=== PATIENT | female | born 1950 | race Caucasian/White ===

== ENCOUNTER → 2023-01-07 13:15 | Outpatient (BNVA) | payer MEDICARE, OTHER, SELFPAY | PROVIDERS: Visit Provider Podiatrist Foot & Ankle Surgery | DX: M72.2 Plantar fascial fibromatosis; M19.072 Primary osteoarthritis, left ankle and foot; M19.071 Primary osteoarthritis, right ankle and foot; G62.9 Polyneuropathy, unspecified; E11.42 Type 2 diabetes mellitus with diabetic polyneuropathy; Z79.84 Long term (current) use of oral hypoglycemic drugs | CPT/HCPCS: 73630; 99204 ==

== ENCOUNTER → 2023-06-14 08:38 | Outpatient (BNVA) | payer MEDICARE, OTHER, SELFPAY | PROVIDERS: Visit Provider Student in an Organized Health Care Education/Training Program | DX: M79.641 Pain in right hand (principal); M79.642 Pain in left hand; M65.321 Trigger finger, right index finger; M65.332 Trigger finger, left middle finger | CPT/HCPCS: 20600; 73130; 99204; J3301; J3490 ==

== ENCOUNTER → 2023-07-05 10:53 | Outpatient (BNVA) | payer MEDICARE, OTHER, SELFPAY | PROVIDERS: PCP Internal Medicine; Visit Provider Student in an Organized Health Care Education/Training Program | DX: M46.1 Sacroiliitis, not elsewhere classified; M70.61 Trochanteric bursitis, right hip | CPT/HCPCS: 73502; 99204 ==

== ENCOUNTER → 2023-07-16 15:55 | Outpatient (BNVA) | payer MEDICARE, OTHER, SELFPAY | PROVIDERS: PCP Internal Medicine; Visit Provider Student in an Organized Health Care Education/Training Program | DX: M75.42 Impingement syndrome of left shoulder | CPT/HCPCS: 73030; 99213 ==

== ENCOUNTER → 2023-07-18 08:59 | Outpatient (BNVA) | payer MEDICARE, OTHER, SELFPAY | PROVIDERS: PCP Internal Medicine; Visit Provider Anesthesiology Pain Medicine | DX: G62.9 Polyneuropathy, unspecified; M46.1 Sacroiliitis, not elsewhere classified; M70.61 Trochanteric bursitis, right hip; M16.11 Unilateral primary osteoarthritis, right hip; M54.50 Low back pain, unspecified; Y93.9 Activity, unspecified | CPT/HCPCS: 99204 ==

== ENCOUNTER → 2023-07-24 14:29 | Outpatient (BNVA) | payer MEDICARE, OTHER, SELFPAY | PROVIDERS: PCP Internal Medicine; Visit Provider Anesthesiology Pain Medicine | DX: M16.9 Osteoarthritis of hip, unspecified (principal); M46.1 Sacroiliitis, not elsewhere classified; M54.9 Dorsalgia, unspecified | CPT/HCPCS: 20610; 27096; 77002; J1030; J3490 ==

== ENCOUNTER → 2023-08-05 12:57 | Outpatient (BNVA) | payer MEDICARE, OTHER, SELFPAY | PROVIDERS: PCP Internal Medicine; Visit Provider Anesthesiology Pain Medicine | DX: M16.11 Unilateral primary osteoarthritis, right hip (principal) | CPT/HCPCS: 20610; 77002; J1030; J3490 ==

== ENCOUNTER → 2023-09-02 08:36 | Outpatient (BNVA) | payer MEDICARE, OTHER, SELFPAY | PROVIDERS: PCP Internal Medicine; Visit Provider Anesthesiology Pain Medicine | DX: M54.16 Radiculopathy, lumbar region (principal); G62.9 Polyneuropathy, unspecified; M19.079 Primary osteoarthritis, unspecified ankle and foot; M46.1 Sacroiliitis, not elsewhere classified; M70.61 Trochanteric bursitis, right hip; M16.11 Unilateral primary osteoarthritis, right hip; Y93.9 Activity, unspecified | CPT/HCPCS: 99214 ==

== ENCOUNTER 2023-09-12 08:50 | Outpatient (CLI) | payer MEDICARE, OTHER, SELFPAY ==
--- NOTE | 2023-09-12 09:00 | CT_ITS ---
WS: [id number] CT LUMBAR SPINE TECHNIQUE: Noncontrast CT of the lumbar spine with coronal and sagittal reformatted images. CLINICAL INFORMATION: M54.16 - Radiculopathy, lumbar region COMPARISON: CT lumbar 2010 DLP: 907.[address] scans at [facility] use at least one of these dose optimization techniques: automated e xposure control; mA and/or kV adjustment per patient size (includes targeted exams where dose is matc hed to clinical indication); or iterative reconstruction. FINDINGS: Mild lumbar curve. Grade 1 anterolisthesis L4 on L5 measuring 5 mm is new from previous with disc salo iccation and loss of disc base height. Vacuum disc phenomenon L4-5. Disc space narrowing lower thorac ic spine T11-T12 and T12-L1. L5 is partially sacralized. L1-L2: Normal. L2-L3: Mild facet arthropathy. Spinal canal and foramen are patent. L3-L4: Mild annular bulging. Moderate facet arthropathy. Mild LEFT greater than RIGHT foraminal narro wing. Slight encroachment on the exiting LEFT L3 nerve root with LEFT eccentric disc bulging. L4-L5: Grade 1 anterolisthesis measuring 5 mm. Moderate central canal stenosis. Moderate facet arthro lata. Moderate to severe bilateral foraminal narrowing RIGHT greater than LEFT with impingement on t he exiting L4 nerve roots bilaterally. L5-S1: No significant disc bulging. Moderate facet arthropathy. Mild LEFT and no significant RIGHT fo raminal narrowing. Spinal canal is patent. Visualized pelvic bony structures: Normal. Paravertebral soft tissues: Normal. IMPRESSION: 1. Grade 1 anterolisthesis L4 on L5 is new compared to 2010 measuring 5 mm. Loss of disc base height with disc desiccation and vacuum disc phenomenon. 2. Moderate central canal stenosis L4-5 with moderate facet arthropathy. Moderate to severe bilatera l bony foraminal narrowing impinges the exiting L4 nerve roots bilaterally RIGHT greater than LEFT. 3. LEFT eccentric disc bulging L3-4 slightly encroaches on the exiting LEFT L3 nerve root. 4. Mild LEFT L5-S1 bony foraminal narrowing. 5. Moderate facet arthropathy L3-L5. 6. L5 is partially sacralized.
== END 2023-09-12 08:51 | disposition home or self-care (01) ==
LOC: RAD 08:50
PROVIDERS: PCP Internal Medicine; Visit Provider Anesthesiology Pain Medicine
DX: M47.26 Other spondylosis with radiculopathy, lumbar region (principal); M51.36 Other intervertebral disc degeneration, lumbar region
CPT/HCPCS: 72131

== ENCOUNTER → 2023-09-20 09:32 | Outpatient (BNVA) | payer MEDICARE, OTHER, SELFPAY | PROVIDERS: PCP Internal Medicine; Visit Provider Student in an Organized Health Care Education/Training Program | DX: M65.321 Trigger finger, right index finger; M65.332 Trigger finger, left middle finger | CPT/HCPCS: 99213 ==

== ENCOUNTER → 2023-10-03 09:32 | Outpatient (BNVA) | payer MEDICARE, OTHER, SELFPAY | PROVIDERS: PCP Internal Medicine; Visit Provider Anesthesiology Pain Medicine | DX: G62.9 Polyneuropathy, unspecified; M19.079 Primary osteoarthritis, unspecified ankle and foot; M46.1 Sacroiliitis, not elsewhere classified; M70.61 Trochanteric bursitis, right hip; M16.11 Unilateral primary osteoarthritis, right hip; M43.16 Spondylolisthesis, lumbar region; M48.061 Spinal stenosis, lumbar region without neurogenic claudication; M47.816 Spondylosis without myelopathy or radiculopathy, lumbar region; Y93.9 Activity, unspecified | CPT/HCPCS: 99214 ==

== ENCOUNTER → 2023-10-22 08:29 | Outpatient (BNVA) | payer MEDICARE, OTHER, SELFPAY | PROVIDERS: PCP Internal Medicine; Visit Provider Student in an Organized Health Care Education/Training Program | DX: M54.50 Low back pain, unspecified (principal); M25.551 Pain in right hip | CPT/HCPCS: 99213 ==

== ENCOUNTER → 2023-11-05 08:38 | Outpatient (BNVA) | payer MEDICARE, OTHER, SELFPAY | PROVIDERS: PCP Internal Medicine; Visit Provider Orthopaedic Surgery | DX: M54.9 Dorsalgia, unspecified (principal); M43.16 Spondylolisthesis, lumbar region | CPT/HCPCS: 72100; 72110; 99204 ==

== ENCOUNTER → 2024-02-04 08:15 | Outpatient (BNVA) | payer MEDICARE, OTHER, SELFPAY | PROVIDERS: PCP Internal Medicine; Visit Provider Orthopaedic Surgery | DX: M43.16 Spondylolisthesis, lumbar region (principal); M54.50 Low back pain, unspecified | CPT/HCPCS: 72110; 99213 ==

== ENCOUNTER → 2024-02-20 12:53 | Outpatient (BNVA) | payer MEDICARE, OTHER, SELFPAY | PROVIDERS: PCP Internal Medicine; Visit Provider Podiatrist Foot & Ankle Surgery | DX: M79.671 Pain in right foot (principal); M79.672 Pain in left foot; M72.2 Plantar fascial fibromatosis; M19.071 Primary osteoarthritis, right ankle and foot; M19.072 Primary osteoarthritis, left ankle and foot; G62.9 Polyneuropathy, unspecified; E11.42 Type 2 diabetes mellitus with diabetic polyneuropathy; Z79.84 Long term (current) use of oral hypoglycemic drugs | CPT/HCPCS: 73630; 99213 ==

== ENCOUNTER → 2024-04-23 13:11 | Outpatient (BNVA) | payer MEDICARE, OTHER, SELFPAY | PROVIDERS: PCP Internal Medicine; Visit Provider Podiatrist Foot & Ankle Surgery | DX: L60.3 Nail dystrophy (principal); G62.9 Polyneuropathy, unspecified; E11.42 Type 2 diabetes mellitus with diabetic polyneuropathy; M19.071 Primary osteoarthritis, right ankle and foot; M19.072 Primary osteoarthritis, left ankle and foot; Z79.84 Long term (current) use of oral hypoglycemic drugs | CPT/HCPCS: 11721 ==

== ENCOUNTER → 2024-05-12 08:12 | Outpatient (BNVA) | payer MEDICARE, OTHER, SELFPAY | PROVIDERS: PCP Internal Medicine; Visit Provider Orthopaedic Surgery | DX: M43.16 Spondylolisthesis, lumbar region | CPT/HCPCS: 99213 ==

== ENCOUNTER → 2024-06-25 14:20 | Outpatient (BNVA) | payer MEDICARE, OTHER, SELFPAY | PROVIDERS: PCP Internal Medicine; Visit Provider Podiatrist Foot & Ankle Surgery | DX: L60.3 Nail dystrophy (principal); G62.9 Polyneuropathy, unspecified; E11.42 Type 2 diabetes mellitus with diabetic polyneuropathy; Z79.84 Long term (current) use of oral hypoglycemic drugs | CPT/HCPCS: 11721 ==

== ENCOUNTER → 2024-08-26 11:20 | Outpatient (BNVA) | payer MEDICARE, OTHER, SELFPAY | PROVIDERS: PCP Internal Medicine; Visit Provider Podiatrist Foot & Ankle Surgery | DX: E11.42 Type 2 diabetes mellitus with diabetic polyneuropathy (principal); L60.3 Nail dystrophy; G62.9 Polyneuropathy, unspecified; Z79.84 Long term (current) use of oral hypoglycemic drugs | CPT/HCPCS: 11721 ==

== ENCOUNTER → 2024-10-22 13:58 | Outpatient (BNVA) | payer MEDICARE, OTHER, SELFPAY | PROVIDERS: PCP Internal Medicine; Visit Provider Surgery | DX: K43.9 Ventral hernia without obstruction or gangrene (principal) | CPT/HCPCS: 99203 ==

== ENCOUNTER → 2024-10-28 11:14 | Outpatient (BNVA) | payer MEDICARE, OTHER, SELFPAY | PROVIDERS: PCP Internal Medicine; Visit Provider Podiatrist Foot & Ankle Surgery | DX: E11.42 Type 2 diabetes mellitus with diabetic polyneuropathy (principal); L60.3 Nail dystrophy; M19.079 Primary osteoarthritis, unspecified ankle and foot; G62.9 Polyneuropathy, unspecified | CPT/HCPCS: 11721 ==

== ENCOUNTER 2024-11-04 15:42 | Outpatient (CLI) | payer MEDICARE, OTHER, SELFPAY ==
[2024-11-04] MEDS: iohexol 350 mg/mL 500 mL Btl (per mL) PO (16:11)
[2024-11-04] MEDS: iohexol 350 mg/mL 500 mL Btl (per mL) IV (16:51)
--- NOTE | 2024-11-04 17:15 | CTR_ITS ---
PROCEDURE INFORMATION: Exam: CT Abdomen And Pelvis With Contrast Exam date and time: 11/04/2024 4:40 PM Age: 74 years old Clinical indication: Condition or disease; Hernia; Complications not specified; Ventral; Prior surgery; Surgery date: 6+ months; Surgery type: --back, stimulator, appy, hyst; Additional info: Ventral hernia TECHNIQUE: Imaging protocol: Computed tomography of the abdomen and pelvis with contrast. Radiation optimization: All CT scans at this facility use at least one of these dose optimization techniques: automated exposure control; mA and/or kV adjustment per patient size (includes targeted exams where dose is matched to clinical indication); or iterative reconstruction. Contrast material: OMNI 350; Contrast volume: 100 ml; Contrast route: INTRAVENOUS (IV); COMPARISON: CR XR hip RT 2-3V wo/w pel* [id number] 07/05/2023 11:07 AM RADIATION DOSE METRICS: Total DLP (mGy-cm): 864.26 FINDINGS: Tubes, catheters and devices: Lower thoracic intraspinal neural stimulator leads. Heart: Moderate aortic valvular calcification is present. Liver: Normal. No mass. Gallbladder and biliary ducts: Normal. No calcified stones. No ductal dilation. Pancreas: Moderate pancreatic atrophy. Spleen: Normal. No splenomegaly. Adrenal glands: Normal. No mass. Kidneys and ureters: Normal. No hydronephrosis. Stomach and bowel: Sigmoid colonic diverticula are present without evidence of diverticulitis. Appendix: The vermiform appendix is not identified on this examination (prior appendectomy). Intraperitoneal space: No free air. No significant fluid collection. Vasculature: Moderate abdominal aortic atherosclerotic calcification without aneurysm. The iliac arteries show mild bilateral atherosclerotic calcifications without evidence of aneurysm. Calcified phleboliths are present in the lower pelvis bilaterally. Lymph nodes: No enlarged lymph nodes. Urinary bladder: Unremarkable as visualized. Reproductive: The uterus is status post hysterectomy. The ovaries are not identified. Bones/joints: Bilateral lower lumbar facet primary osteoarthritis. Grade 1 L4-5 degenerative type anterolisthesis. L4-L5 degenerative disc disease. Soft tissues: A tiny paraumbilical hernia containing only abdominal fat is noted. 5.5 x 4.6 x 6.3 cm supraumbilical linea alba hernia containing only abdominal adipose. CT/CT abdomen pelvis w con* [id number] IMPRESSION: 1. Supraumbilical linea alba hernia. 2. Prior hysterectomy. 3. Diverticulosis. 4. Previous appendectomy.
== END 2024-11-04 15:43 | disposition home or self-care (01) ==
PROVIDERS: PCP Electrodiagnostic Medicine; Visit Provider Surgery
DX: K43.9 Ventral hernia without obstruction or gangrene (principal); M17.12 Unilateral primary osteoarthritis, left knee; M25.561 Pain in right knee; M25.562 Pain in left knee
CPT/HCPCS: 73560; 73565; 74177; 99214

== ENCOUNTER → 2024-11-24 10:12 | Outpatient (BNVA) | payer MEDICARE, OTHER, SELFPAY | PROVIDERS: PCP Electrodiagnostic Medicine; Visit Provider Surgery | DX: Z09 Encounter for follow-up examination after completed treatment for conditions other than malignant neoplasm (principal); R03.0 Elevated blood-pressure reading, without diagnosis of hypertension | CPT/HCPCS: 99213 ==

== ENCOUNTER 2024-12-08 14:49 | Emergency (ER) | payer MEDICARE, OTHER, SELFPAY ==
[2024-12-08 14:50] VITALS: BP 199/89; PULSE 98; RESP 20; TEMP 36.7; O2SAT 98
--- NOTE | 2024-12-08 14:50 | XRR_ITS ---
PROCEDURE INFORMATION: Exam: XR Left Knee Exam date and time: 12/08/2024 3:07 PM Age: 74 years old Clinical indication: Injury or trauma; Fall; Blunt trauma; Knee; Left TECHNIQUE: Imaging protocol: Radiologic exam of the left knee. Views: 3 views. COMPARISON: CR XR knees AP WB w BI lmt ORTH 11/04/2024 2:49 PM FINDINGS: Bones/joints: No acute fracture or dislocation. Redemonstrated moderate to severe narrowing of the medial compartment and moderate narrowing of the patellofemoral compartment. Tricompartmental marginal osteophytes. No significant joint effusion. Soft tissues: Normal. XR/XR knee LT 3V* [id number] IMPRESSION: 1. No acute osseous findings. 2. Tricompartmental degenerative changes most pronounced in the medial compartment.
--- NOTE | 2024-12-08 14:52 | W.ED.FALL ---
HPI - Fall General: Chief Complaint: Extremity Injury, Lower Stated Complaint: Fall, LT knee pain Time Seen by Provider: 12/08/24 14:50 History of Present Illness: 74-year-old female presents emergency after a fall while at home. She was walking down some steps carrying a large toe but she missed stepped and fell down several steps she hurt her left wrist left knee and left ankle did not strike her head no loss consciousness no injury to her chest or abdomen no difficulty breathing no chest pain no abdominal pain Associated symptoms-after fall: Denies abdominal pain, chest pain or neck pain Related Data Home Medications ?Medication ?Instructions ?Recorded ?Confirmed albuterol sulfate inhalation PRN shortness of breath 01/07/23 11/24/24 meloxicam 15 mg tablet 15 mg PO DAILY 01/07/23 11/24/24 metformin 500 mg tablet 500 mg PO DAILY 01/07/23 11/24/24 metoprolol succinate 100 mg 100 mg PO DAILY 01/07/23 11/24/24 tablet,extended release 24 hr mometasone 0.1 % topical cream 1 applic topical DAILY 01/07/23 11/24/24 nitroglycerin 6.5 mg 6.5 mg PO BID 01/07/23 11/24/24 capsule,extended release rosuvastatin 40 mg tablet (Crestor) 40 mg PO DAILY 01/07/23 11/24/24 tramadol 50 mg tablet 50 mg PO BID PRN 01/07/23 11/24/24 mounja drops as directed 11/24/24 Previous Rx's ?Medication ?Instructions ?Recorded diabetic shoes with 3 inserts #1 ea 08/03/24 Allergies Allergy/AdvReac Type Severity Reaction Status Date / Time latex Allergy Severe ADR-Itching Verified 11/24/24 10:12 Penicillins Allergy Severe ALGY-Rash Verified 11/24/24 10:12 gabapentin (From Neurontin) Allergy Intermediate ADR-Itching Verified 11/24/24 10:12 levofloxacin (From Levaquin) Allergy Intermediate ADR-Itching Verified 11/24/24 10:12 Sulfa (Sulfonamide Allergy Intermediate Unknown Verified 11/24/24 10:12 Antibiotics) tuna Allergy Severe ADR-Vomitin Uncoded 11/24/24 10:12 g horse serum TD Allergy Intermediate ALGY-Redness Uncoded 11/24/24 10:12 of Skin inderal Allergy Intermediate ADR-Nausea Uncoded 11/24/24 10:12 Review of Systems Const: Denies: fever(s) or chills Card: Denies: chest pain Resp: Denies: dyspnea GI: Denies: abdominal pain : Denies: dysuria, urinary frequency or urinary urgency Musc: Denies: neck pain or back pain Skin/Breast: Denies: rash PFSH ED PFSH: Social History Smoking and tobacco/nicotine status: never used tobacco/nicotine Physical Exam Const: COMMON NORMALS: no acute distress GENERAL APPEARANCE: cooperative and comfortable ORIENTATION/CONSCIOUSNESS: Yes awake, Yes oriented to person, Yes oriented to place and Yes oriented to time HENMT: COMMON NORMALS: normocephalic, atraumatic and hearing grossly normal bilaterally HEAD & SCALP: normocephalic and atraumatic Resp: COMMON NORMALS: normal respiratory effort, No retractions, No use of accessory muscles and clear to auscultation bilaterally AUSCULTATION: clear to auscultation bilaterally Cardio: COMMON NORMALS: regular rate, regular rhythm and No murmurs present (Cardio) RATE: regular rate RHYTHM: regular rhythm GI: COMMON NORMALS: Soft to palpation and No hepatosplenomegaly present AUSCULTATION: Yes normoactive bowel sounds PALPATION: Yes Soft to palpation, No Tenderness to palpation present (GI), No Guarding due to palpation present (GI) and Yes No hepatosplenomegaly present Extremity: COMMON NORMALS: normal to inspection, capillary refill normal, no clubbing, cyanosis or edema, no calf tenderness and no pedal edema Neuro: SENSORIUM/ORIENTATION: Yes oriented to person, Yes oriented to place and Yes oriented to time Skin: COMMON NORMALS: no rashes or lesions noted GENERAL SKIN EXAM: no rashes or lesions noted Course Vital Signs: Vital signs: Vital Signs Temperature 98.1 F 12/08/24 14:50 Pulse Rate 98 12/08/24 14:50 Respiratory Rate 20 H 12/08/24 14:50 Blood Pressure 199/89 12/08/24 14:50 Pulse Oximetry 98 12/08/24 14:50 Oxygen Delivery Me thod Room Air 12/08/24 14:50 MDM - Fall Medical Decision Making Imaging does not show any acute fractures however patient still has some discomfort walking the knee she certainly has a great degree of arthritic changes there she is actually scheduled in about 6 weeks have a knee arthroplasty done. She still feels unsteady on the leg we will put her in a knee immobilizer she has a walker that she will use that she already got at home. Have her follow-up with orthopedics. Lab Data Radiology Impressions Knee X-Ray 12/08/24 14:50 IMPRESSION: 1. No acute osseous findings. 2. Tricompartmental degenerative changes most pronounced in the medial compartment. Ankle X-Ray 12/08/24 14:57 IMPRESSION: No acute osseous findings. Lumbar Spine X-Ray 12/08/24 15:06 IMPRESSION: No acute osseous findings. Wrist X-Ray 12/08/24 15:06 IMPRESSION: 1. No definite acute osseous findings. 2. Similar severe degenerative changes most pronounced along the 1st CMC joint. Knee CT 12/08/24 15:50 IMPRESSION: 1. No acute osseous findings. MRI could be considered for further assessment if there is concern for internal derangement. 2. Mild prepatellar soft tissue swelling. 3. Tricompartmental degenerative changes most pronounced in the medial compartment. All radiology interpretation(s) finalized by discharge Discharge Plan Discharge Patient Disposition: Home Clinical Impression: Sprain of left knee, Fall Condition: Stable Prescriptions: No Action metoprolol succinate 100 mg tablet extended release 24 hr 100 mg PO DAILY nitroglycerin 6.5 mg capsule, extended release 6.5 mg PO BID Rx Instructions: allow nitrate-free interval of approx. 10-12 hrs per 24-hour period rosuvastatin [Crestor] 40 mg tablet 40 mg PO DAILY meloxicam 15 mg tablet 15 mg PO DAILY mometasone 0.1 % cream 1 applic topical DAILY tramadol 50 mg tablet 50 mg PO BID PRN metformin 500 mg tablet 500 mg PO DAILY albuterol sulfate inhalation PRN (Reason: shortness of breath) mounja drops as directed (DME) diabetic shoes with 3 inserts See Rx Instructions .Route .MEDSUPPLY Qty: 1 0RF Rx Instructions: As directed to the shoe delaneyjocelyn Discharge Orders: Discharge ED (Routine); Ordered 12/08/24 Ordered By: Derrek Lynn Referrals: Michele Milner, [Primary Care Provider, Family Practice] Discharge Diet: Usual diet Discharge Activity: Resume usual activity Patient Instructions: Opioid Safety, Pain Management, Patient Portal & Olga Instructions Activity Restrictions/Additional Instructions: Thank you for choosing [facility] for your healthcare needs today. It is very important that you follow up as instructed or that you return to the Emergency Department should you have concerns or if your condition changes or worsens in any way. You were seen in the emergency room after a fall. Imaging does not show any acute fractures. Since you continue to complain of pain in the left knee recommend you wear knee immobilizer and use your walker that you have at home until you follow-up with orthopedics. Print Language: Chinese Coding Level of Care Code ED Associate Research Scientist for Noemi Zavaleta
--- NOTE | 2024-12-08 14:57 | XRR_ITS ---
PROCEDURE INFORMATION: Exam: XR Left Ankle Exam date and time: 12/08/2024 3:04 PM Age: 74 years old Clinical indication: Injury or trauma; Fall; Sprain or strain; Ankle; Left; Additional info: Pain TECHNIQUE: Imaging protocol: Radiologic exam of the left ankle. Views: 3 or more views. COMPARISON: [place] [id number] ORTH 02/20/2024 1:01 PM FINDINGS: Bones/joints: No acute fracture or dislocation. Symmetric ankle mortise. Joint spaces are preserved. Plantar calcaneal enthesophyte. Soft tissues: Normal. XR/XR ankle LT min 3V* [id number] IMPRESSION: No acute osseous findings.
--- OUTSIDE RECORDS SUMMARY | 2024-12-08 14:59 | XMS_ITS | Clinical Summary ---
Author Organization [facility] Address [address] oBwen: [place] [address] Care Team Providers Care Argon Tester Name Role Phone Unavailable Primary Care Provider Unavailabl e Allergies Active Allergy Reactions Criticality Noted Date Comments Gabapentin Rash,Swelling Low 12/07/2008 Horse/Equine Containing Products Rash,Swelling Low 12/07/2008 Levofloxacin Rash,Swelling Low 12/07/2008 Penicillin G Rash,Swelling Low 12/07/2008 Propranolol Rash,Swelling Low 12/07/2008 Active Problems Problem Noted Date Diagnosed Date HTN (hypertension) 02/07/2009 Overview (10/06/2020): Updating IMO/ICD9 Code and Description Dyslipidemia 12/14/2008 Other and unspecified angina pectoris 12/07/2008 Nonspecific abnormal electrocardiogram (ECG) (EK G) 12/07/2008 Encounters Date Type Department Care Team Description 11/25/2024 External Device Data ST[facility] ABSTRACTION Provider, Abstract 10/29/2024 External Device Data [facility] ABSTRACTION Provider, Abstract 10/29/2024 External Device Data [facility] ABSTRACTION Provider, Abstract 10/28/2024 External Device Data [facility] ABSTRACTION Provider, Abstract 09/08/2024 External Device Data [facility] ABSTRACTION Provider, Abstract from Last 3 Months Family History Medical History Relation Name Comments Heart Disease Father Heart Disease Mother Breast Cancer Sister 1 ages 27 & 58 Lung Cancer Sister 1 Uterine or Endometrial Cancer, Not Including Cervical Sister 2 Cancer - Other Neg Hx Melanoma Neg Hx Ovarian Cancer Neg Hx Pancreatic Cancer Neg Hx Relation Name Status Comments Daughter 1 Alive Daughter 2 Alive Father Maternal Grandmother Mother Sister 1 (Age 58) Sister 2 Sister 3 Alive Sister 4 MAT HALF Alive Social History Tobacco Use Types Packs/Day Years Used Date Smoking Tobacco: Former Cigarettes Q uit: 06/10/1971 Alcohol Use Standard Drinks/Week Comments No 0 (1 standard drink = 0.6 oz pur e alcohol) Comments No Sex and Gender Information Value Date Recorded Sex Assigned at Not on file 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 Gender Identity Not on file Sexual Orientation Not on file Last Filed Vital Signs Vital Sign Reading Time Taken Comments Blood Pressure - - Pulse - - Temperature - - Respiratory Rate - - Oxygen Saturation - - Inhaled Oxygen Concentration - - Weight 73.5 kg (162 lb) 06/08/2024 1:00 PM 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 Height 147.3 cm (4' 10 ) 06/08/2024 1: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 [place] [place], [place] [id number]
--- OUTSIDE RECORDS SUMMARY | 2024-12-08 14:59 | XMS_ITS | Patient Health Record ---
Author Organization [facility] Address [address] [place] [address] Care Team Providers Care Faucets Assembler Name Role Phone Aleksandr Littlejohn DO Primary Care Provider Unavaila Nicolás Hemphill Unavailable [phone] KALEIGH HESS Unavailable Unavailable Allergies Allergen (clinical drug ingredient) Drug/Non Drug Allergy documented on EMR Reaction Allergy Type Onset Date Status Information temporarily unavailable Neurontin Unknown Drug Allergy Active Information temporarily unavailable Tuna Flavor Unknown Drug Allergy Active Information temporarily unavailable Adhesive Unknown Allergy Active Information temporarily unavailable Horse-derived Products Unknown Drug Allergy Activ e Information temporarily unavailable Inderal Unknown Drug Allergy Active Information temporarily unavailable Latex Unknown Allergy Active Information temporarily unavailable Levaquin Unknown Drug Allergy Active Information temporarily unavailable Penicillin Unknown Drug Allergy Active Reason For Referral No Information Medications Medication SIG (Take, Route, Frequency, Duration) Notes Start Date End Date Status Nitro-Bid Active Metoprolol Tartrate 100 MG 1 tablet with food Orally Twice a day Active Omeprazole 40 MG 1 capsule 30 minutes before morning meal Orally Once a day Active Crestor 40 MG 1 tablet Orally Once a day Active Elocon Active Meloxicam 15 MG 1 tablet Orally Once a day Active metFORMIN HCl 500 MG 1 tablet with a allison l Orally Once a day Active traMADol HCl 50 MG 1 tablet as needed O rally Once a day Active Social History Tobacco Use: Social History Observation Description Date Details (start date - stop date) Former Smoker NA - NA xTobacco Use/Smoking Question Answer Notes Are you a former smoker How long has it been since you last smoked? > 10 years Alcohol Screen (Audit-C) Question Answer Notes Did you have a drink containing alcohol in the p ast year? No Points 0 Interpretation Negative PHQ-9 Question Answer Notes Little interest or pleasure in doing things Not at all Feeling down, depressed, or hopeless Not at all Trouble falling or staying asleep, or sleeping t oo much More than half the days Feeling tired or having little energy Not at all Poor appetite or overeating Not at all Feeling bad about yourself, or that you are a failure, or have let yourself or your family down Not at all Trouble concentrating on thi ngs, such as reading the newspaper or watching television Not at all Moving or speaking so slowly that other people could have noticed. Or the opposite ? 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 Plan Of Treatment Pending Test Test Name Order Date XR Outside CD 10/23/2019 Insurance Providers Payer Name Payer Address Payer Phone Subscriber Number Group Number Insured Name Patient Relationship to Insured Coverage Start Date Coverage End Date [place] Medicare [address] [place] [phone] [id number] [place], [place] Self - patient is the insured [employer] [address] [place] [address] [place]ULINO [id number] [phone] [id number] [place], [place] Self - patient is the insured Medical (General) History Medical History History ICD Code measles whooping cough pneumonia arthritis urinary tract infections migraine headaches diabetes asthma bronchitis Surgical History Surgery Date(Month/Year) left shoulder ligament repair 08/2018 neurostimulator replaced 05/2018 right shoulder rotator cuff repair 01/27 17 right knee medial repair 10/2014 bilateral cataract removal 05/2012 neurostimulator implant 01/2009 Trial DSC implant 11/2008 laminectomy 10/2005 urethra repair 1994 bladder tuck 1994 hysterectomy 1994 carpal tunnel release 2005 tubal ligation 1982 section 1982 tonsillectomy 1971 appendectomy 1970
--- OUTSIDE RECORDS SUMMARY | 2024-12-08 14:59 | XMS_ITS | Data Portability ---
Author Organization [facility] Martin Stone [facility] Maxine Paige [facility] Address [address] [facility] [address] [place] [address] Assessment Encounter Date Assessment Date Assessment LastModified by Organization Details LastModified Time 10/07/2024 10/07/2024 Document scribed by Cesar Cavazos [employer]. I was present during interview and exam. I have reviewed and agree with above documentation. Dr. Michele Milner. A Care Coordination Assessment form was filled out as part of this patient's office visit today. [email or web address] Not available 10/07/2024 09:19:24 11/18/2024 11/18/2024 Document scribed by Cesar Cavazos [employer]. I was present during interview and exam. I have reviewed and agree with above documentation. Dr. Michele Milner. [email or web address] Not available 11/18/2024 12:30:07 Plan of Treatment Reminders Order Date Submit Date Provider Last Modified By Organization Details Last Modified Time Details Appointments RECHECK 10 2024 10:40A Candy Milner, DO Not available Not available Not available RECHECK 10 2024 09:30A Candy Milner, DO Not available Not available Not available Lab hemoglobi n A1C/hemog lobin total, QN, blood 2024 025 [email or web address] 7 [facility], [address], [facility] [address], [place], [address], 10/07/2024 13:10:16 CMP, serum or plasma 2024 025 [email or web address] 7 [facility], [address], [address], [place], [address], 10/07/2024 13:10:16 CBC 2024 025 [email or web address] 7 [facility], [address], [address], [place], [address], 10/07/2024 13:10:16 hemoglobi n A1C/hemog lobin total, QN, blood [email or web address] [facility], [address], [address], [place], [address], 10/14/2024 09:14:38 BMP, serum or plasma 2023 [address] [facility], [address], [address], [place], [address], 10/14/2024 09:14:38 lipid panel, blood 2024 025 [email or web address] 7 [facility], [address], [address], [place], [address], 10/07/2024 13:10:16 CMP, serum or plasma 2023 024 [facility], [address], [address], [place], [address], 03/30/2024 10:40:04 lipid panel, blood 2023 024 [facility], [address], [address], [place], [address], 03/30/2024 10:41:17 CBC 2023 024 [facility], [address], [address], [place], [address], 03/30/2024 10:08:48 TSH, serum or plasma 2023 024 [facility] ([facility]), [address] [place], [address], 03/30/2024 10:46:18 HbA1c (hemoglob in A1c), blood 2023 024 [facility] ([facility]), [address] [place], [address], 03/30/2024 10:12:06 microalbu min/creat inine, mass ratio, urine 2023 024 [facility], [address] [place] [address], [facility] [address] [place], [address], 04/02/2024 04:45:36 Referral general surgeon referral - RADHA Li. 2024 025 [facility], [address] [place] [address], [address], 10/14/2024 15:39:59 Procedures None recorded. Surgeries None recorded. Imaging XR, knee, 3 view 2024 025 [facility] ([facility]), [address] [place], [address], 10/08/2024 10:46:57 Medication Orders Mounjaro 2.5 mg/0.5 mL subcutane ous pen injector 2024 025 [email or web address] 7 [facility], [facility] [address], [place], [address], 11/18/2024 18:03:46 meloxicam 15 mg tablet 2024 025 [email or web address] 7 [facility], [address] [facility] [address], [place], [address], 10/07/2024 13:10:16 doxycycli ne hyclate 100 mg capsule 2023 [facility], [address] [place] [address], [address], [place], [address], 04/09/2024 10:37:24 Ventolin HFA 90 mcg/actua tion aerosol inhaler 2023 024 [facility], [address] [place] [address], [address], [place], [address], 03/24/2024 11:39:19 Patient TargetsNo targets recorded. Patient Instructions Encounter Date Encounter Id Patient Instructions Last Modified By Organization Details Last Modified Time 04/06/2024 [id number] lots of stress o n her plate; 's dementia worse a1c and lipids slightly up; they have been going to [facility] every day and she wasn't eating well; she will improve diet labs reviewed together mammogram scheduled in May [email or web address] Not available 04/06/2024 10:00:09 Reason for Referral General Surgeon Referral for [facility]mbilical hernia [facility] Referring Physician: Michele Milner, Family Medicine, Encounter Date: 10/07/2024 Results Created Date Observation Date Name Description Value Unit Range Abnormal Flag Note LastModifiedBy Organization Detail LastModifiedTime 03/30/2003/30/2024 CBC WBC 8.3 x10 4.0-10 .5 Not Available [facility] [address] [facility] [address], [place], [address], 03/30/2024 10:08:48 03/30/2003/30/2024 CBC RBC 4.85 x10 3.50-5 .50 Not Available [facility] [address], [place], [address], 03/30/2024 10:08:48 03/30/2003/30/2024 CBC HGB 13.5 g/dL 12.0-1 6.0 Not Available [facility] [address] [facility] 1, [place], [address], 03/30/2024 10:08:48 03/30/2003/30/2024 CBC HCT 40.6 % 37.0-4 7.0 Not Available [facility] [address] [facility] 1, [place], [address], 03/30/2024 10:08:48 03/30/2003/30/2024 CBC MCV 83.7 fL 80.0-9 9.9 Not Available [facility] [address] [facility] 1, [place], [address], 03/30/2024 10:08:48 03/30/2003/30/2024 CBC MCH 27.7 pg 27.0-3 2.0 Not Available [facility] [address] [facility] 1, [place], [address], 03/30/2024 10:08:48 03/30/2003/30/2024 CBC MCHC 33.1 g/dL 32.0-3 6.0 Not Available [facility] [address] [facility] 1, [place], [address], 03/30/2024 10:08:48 03/30/2003/30/2024 CBC RDW 14.9 % 11.5-1 4.5 high Not Available [facility] [address] [facility] 1, [place], [address], 03/30/2024 10:08:48 03/30/2003/30/2024 CBC plt 253.9 x10 140.0- 451.0 Not Available [facility] [address] [facility] 1, [place], [address], 03/30/2024 10:08:48 03/30/20 24 03/30/2024 CBC lymphocytes % 23.7 % 20.0-5 0.0 Not Available [facility] [address] [facility] 1, [place], [address], 03/30/2024 10:08:48 03/30/20 24 03/30/2024 CBC granulcytes % 62.5 % 30.0-7 0.0 Not Available [facility] [address] [facility] 1, [place], [address], 03/30/2024 10:08:48 03/30/2003/30/2024 CBC monocytes % 8.2 % 2.0-16 .0 Not Available [facility] [address] [facility] 1, [place], [address], 03/30/2024 10:08:48 03/30/2003/30/2024 CBC granulcytes# 5.2 x10 Not Alissa ilable [facility] [address] [facility] 1, [place], [address], 03/30/2024 10:08:48 03/30/20 24 03/30/2024 CBC lymphocytes # 2.0 x10 Not Available [facility] [address] [facility] 1, [place], [address], 03/30/2024 10:08:48 03/30/20 24 03/30/2024 CBC monocytes # 0.7 x10 Not Avai lable [facility] [address] [facility] 1, [place], [address], 03/30/2024 10:08:48 03/30/20 24 03/30/2024 CMP (FEMA LE) glucose 183.0 mg/dL 60.0-9 9.0 high Not Available [facility] [address] [facility] 1, [place], [address], 03/30/2024 10:40:04 03/30/20 24 03/30/2024 CMP (FEMA LE) BUN (blood urea nitrogen) 19.0 mg/dL 10.0-2 6.0 Not Available [facility] [address] [facility] 1, [place], [address], 03/30/2024 10:40:04 03/30/2003/30/2024 CMP (FEMA LE) creatinine (serum) 0.6 mg/dL 0.4-1. 5 Not Available [facility] [address] [facility] 1, [place], [address], 03/30/2024 10:40:04 03/30/2003/30/2024 CMP (FEMA LE) BUN/creatini ne ratio 30.16 ratio Not Available [facility] [address] [address], [place], [address], 03/30/2024 10:40:04 03/30/20 24 03/30/2024 CMP (FEMA LE) eGFR calculated 97.9 Not Available [facility] [address] [facility] 1, [place], [address], 03/30/2024 10:40:04 03/30/20 24 03/30/2024 CMP (FEMA LE) total protein 7.1 g/dL 6.0-8. 5 Not Available [facility] [address] [address], [place], [address], 03/30/2024 10:40:04 03/30/20 24 03/30/2024 CMP (FEMA LE) total bilirubin 0.6 mg/dL 0.2-1. 3 Not Available [facility] [address] [address], [place], [address], 03/30/2024 10:40:04 03/30/20 24 03/30/2024 CMP (FEMA LE) albumin 4.2 g/dL 3.5-5. 5 Not Available [facility] [address] [facility], [place], [address], 03/30/2024 10:40:04 03/30/20 24 03/30/2024 CMP (FEMA LE) globulin 2.9 calc Not Available [facility] [address] [facility] 1, [place], [address], 03/30/2024 10:40:04 03/30/20 24 03/30/2024 CMP (FEMA LE) AST (SGOT) 30.0 U/L 0.0-46 .0 Not Available [facility] [address] [facility] 1, [place], [address], 03/30/2024 10:40:04 03/30/20 24 03/30/2024 CMP (FEMA LE) altv (SGPT) 28.0 U/L 13.0-6 9.0 normal Not Available [facility] [address] [facility] 1, [place], [address], 03/30/2024 10:40:04 03/30/20 24 03/30/2024 CMP (FEMA LE) A/G ratio 1.4 ratio Not Available [facility] [address] [facility] 1, [place], [address], 03/30/2024 10:40:04 03/30/20 24 03/30/2024 CMP (FEMA LE) ALP phos 118.0 U/L 30.0-1 40.0 normal Not Available [facility] [address] [facility] 1, [place], [address], 03/30/2024 10:40:04 03/30/20 24 03/30/2024 CMP (FEMA LE) calcium 9.6 mg/dL 8.4-10 .5 Not Available [facility] [address] [facility] 1, [place], [address], 03/30/2024 10:40:04 03/30/2003/30/2024 CMP (FEMA LE) sodium 138.0 mmol/ L 136.0- 145.0 Not Available [facility] [address] [facility] 1, [place], [address], 03/30/2024 10:40:04 03/30/2003/30/2024 CMP (FEMA LE) potassium 4.7 mmol/ L 3.5-5. 1 Not Available [facility] [address] [facility] 1, [place], [address], 03/30/2024 10:40:04 03/30/2003/30/2024 CMP (FEMA LE) chloride 100.0 mmol/ L 98.0-1 10.0 normal Not Available [facility] [address] [facility] 1, [place], [address], 03/30/2024 10:40:04 03/30/2003/30/2024 CMP (FEMA LE) C02 28.0 mmol/ L 22.0-3 1.0 Not Available [facility] [address] [facility] 1, [place], [address], 03/30/2024 10:40:04 03/30/2003/30/2024 CMP (FEMA LE) anion gap 10.0 calc Not Available [facility] [address] [facility] 1, [place], [address], 03/30/2024 10:40:04 03/30/2003/30/2024 CMP (FEMA LE) osmolality 291.5 calc Not Available [facility] [address] [facility] 1, [place], [address], 03/30/2024 10:40:04 03/30/2003/30/2024 LIPID PROFI LE (FEMA LE) cholesterol 227.0 mg/dL 0.0-20 0.0 high Not Available [facility] [address] [facility] 1, [place], [address], 03/30/2024 10:41:17 03/30/2003/30/2024 LIPID PROFI LE (FEMA LE) trig 188.0 mg/dL 0.0-15 0.0 high Not Available [facility] [address] [facility] 1, [place], [address], 03/30/2024 10:41:17 03/30/2003/30/2024 LIPID PROFI LE (FEMA LE) HDL - direct 41.0 mg/dL >40.0 Not Available [facility] [address] [facility] 1, [place], [address], 03/30/2024 10:41:17 03/30/2003/30/2024 LIPID PROFI LE (FEMA LE) VLDL - direct 37.6 mg/dL Not Available [facility] [address] [facility] 1, [place], [address], 03/30/2024 10:41:17 03/30/2003/30/2024 LIPID PROFI LE (FEMA LE) LDL - direct 148.4 mg/dL 0.0-13 0.0 high Not Available [facility] [address] [facility] 1, [place], [address], 03/30/2024 10:41:17 03/30/2004/02/2024 ALBUM IN, RANDO M URINE W/CRE ATINI NE creatinine, random urine 73 mg/dL 20-275 normal Not Available [facility] [address] [address], [place], [address], 04/02/2024 04:45:36 03/30/2002 0404/02/2024 ALBUM IN, RANDO M URINE W/CRE ATINI NE albumin, urine 0.7 mg/dL see note: normal Refer ence Range : Refer ence Range Not estab lishe d Not Available [facility] [address] [place], [address], 04/02/2024 04:45:36 03/30/20 24 04/02/2024 ALBUM IN, RANDO M URINE W/CRE ATINI NE albumin/crea tinine ratio, random urine 10 mg/g_ creat <30 normal The ADA defin es abnor malit ies in album in excre tion as follo ws: Album inuri a Categ ory Resul t (mg/g creat inine ) Mehnaz l to Mildl y incre ased <30 Moder ately incre ased 30-29 9 Sever jasmine incre ased > OR = 300 The ADA recom mends that at least two of three speci mens colle cted withi n a 3-6 month perio d be abnor mal befor e consi marsha g a patie nt to be withi n a diagn ostic categ ory. Not Available [facility] [address] [place], [address], 04/02/2024 04:45:36 03/30/20 24 03/30/2024 TSH, serum or plasm a TSH 2.69 uIU/m L 0.49-3 .82 Not Available [facility] ([facility]) [address] [place] [address], [address], 03/30/2024 09:51:02 03/30/2003/30/2024 HbA1c (hemo globi n A1c), blood HbA1c 7.9 Not Available [facility] ([facility]) [address] [place] [address], [address], 03/30/2024 09:48:28 10/08/19 25 10/07/2024 CBC WBC 8.7 x10 4.0-10 .5 Not Available [facility] [address] [facility] 1, [place], [address], 10/07/2024 10:05:56 10/08/19 25 10/07/2024 CBC RBC 4.92 x10 3.50-5 .50 Not Available [facility] [address] [facility] 1, [place], [address], 10/07/2024 10:05:56 10/08/19 25 10/07/2024 CBC HGB 13.7 g/dL 12.0-1 6.0 Not Available [facility] [address] [facility] 1, [place], [address], 10/07/2024 10:05:56 10/08/19 25 10/07/2024 CBC HCT 42.3 % 37.0-4 7.0 Not Available [facility] [address] [facility] 1, [place], [address], 10/07/2024 10:05:56 10/08/19 25 10/07/2024 CBC MCV 85.9 fL 80.0-9 9.9 Not Available [facility] [address] [facility] 1, [place], [address], 10/07/2024 10:05:56 10/08/19 25 10/07/2024 CBC MCH 27.9 pg 27.0-3 2.0 Not Available [facility] [address] [facility] 1, [place], [address], 10/07/2024 10:05:56 10/08/19 25 10/07/2024 CBC MCHC 32.5 g/dL 32.0-3 6.0 Not Available [facility] [address] [facility] 1, [place], [address], 10/07/2024 10:05:56 10/08/19 25 10/07/2024 CBC RDW 14.4 % 11.5-1 4.5 Not Available [facility] [address] [facility] 1, [place], [address], 10/07/2024 10:05:56 10/08/19 25 10/07/2024 CBC plt 274.2 x10 140.0- 451.0 Not Available [facility] [address] [facility] 1, [place], [address], 10/07/2024 10:05:56 10/08/19 25 10/07/2024 CBC lymphocytes % 19.1 % 20.0-5 0.0 low Not Available [facility] [address] [facility] 1, [place], [address], 10/07/2024 10:05:56 10/08/19 25 10/07/2024 CBC granulcytes % 66.5 % 30.0-7 0.0 Not Available [facility] [address] [facility] 1, [place], [address], 10/07/2024 10:05:56 10/08/1910/07/2024 CBC monocytes % 7.3 % 2.0-16 .0 Not Available [facility] [address] [facility] 1, [place], [address], 10/07/2024 10:05:56 10/08/19 25 10/07/2024 CBC granulcytes# 5.8 x10 Not Alissa ilable [facility] [address] [facility] 1, [place], [address], 10/07/2024 10:05:56 10/08/19 25 10/07/2024 CBC lymphocytes # 1.7 x10 Not Available [facility] [address] [address], [place], [address], 10/07/2024 10:05:56 10/08/19 25 10/07/2024 CBC monocytes # 0.6 x10 Not Avai lable [facility] [address] [facility] 1, [place], [address], 10/07/2024 10:05:56 10/08/19 25 10/07/2024 HBA1C hemaglobin A1C 8.1 4.2-6. 5 high Not Available [facility] [address] [facility] 1, [place], [address], 10/07/2024 10:15:54 10/08/19 25 10/07/2024 CMP (FEMA LE) glucose 196.0 mg/dL 60.0-9 9.0 high Not Available [facility] [address] [facility] 1, [place], [address], 10/07/2024 10:41:55 10/08/19 25 10/07/2024 CMP (FEMA LE) BUN (blood urea nitrogen) 24.0 mg/dL 10.0-2 6.0 Not Available [facility] [address] [facility] 1, [place], [address], 10/07/2024 10:41:55 10/08/19 25 10/07/2024 CMP (FEMA LE) creatinine (serum) 0.6 mg/dL 0.4-1. 5 Not Available [facility] [address] [address], [place], [address], 10/07/2024 10:41:55 10/08/19 25 10/07/2024 CMP (FEMA LE) BUN/creatini ne ratio 40.00 ratio Not Available [facility] [address] [facility] 1, [place], [address], 10/07/2024 10:41:55 10/08/19 25 10/07/2024 CMP (FEMA LE) eGFR calculated 103.6 Not Available [facility] [address] [facility] 1, [place], [address], 10/07/2024 10:41:55 10/08/19 25 10/07/2024 CMP (FEMA LE) total protein 7.3 g/dL 6.0-8. 5 Not Available [facility] [address] [facility] 1, [place], [address], 10/07/2024 10:41:55 10/08/19 25 10/07/2024 CMP (FEMA LE) total bilirubin 0.5 mg/dL 0.2-1. 3 Not Available [facility] [address] [facility] 1, [place], [address], 10/07/2024 10:41:55 10/08/19 25 10/07/2024 CMP (FEMA LE) albumin 4.1 g/dL 3.5-5. 5 Not Available [facility] [address] [facility] 1, [place], [address], 10/07/2024 10:41:55 10/08/19 25 10/07/2024 CMP (FEMA LE) globulin 3.2 calc Not Available [facility] [address] [address], [place], [address], 10/07/2024 10:41:55 10/08/19 25 10/07/2024 CMP (FEMA LE) AST (SGOT) 23.0 U/L 0.0-46 .0 Not Available [facility] [address] [facility] 1, [place], [address], 10/07/2024 10:41:55 10/08/19 25 10/07/2024 CMP (FEMA LE) altv (SGPT) 22.0 U/L 13.0-6 9.0 normal Not Available [facility] [address] [facility] 1, [place], [address], 10/07/2024 10:41:55 10/08/19 25 10/07/2024 CMP (FEMA LE) A/G ratio 1.3 ratio Not Available [facility] [address] [facility] 1, [place], [address], 10/07/2024 10:41:55 10/08/19 25 10/07/2024 CMP (FEMA LE) ALP phos 126.0 U/L 30.0-1 40.0 normal Not Available [facility] [address] [facility] 1, [place], [address], 10/07/2024 10:41:55 10/08/19 25 10/07/2024 CMP (FEMA LE) calcium 9.9 mg/dL 8.4-10 .5 Not Available [facility] [address] [facility] 1, [place], [address], 10/07/2024 10:41:55 10/08/19 25 10/07/2024 CMP (FEMA LE) sodium 140.0 mmol/ L 136.0- 145.0 Not Available [facility] [address] [facility] 1, [place], [address], 10/07/2024 10:41:55 10/08/19 25 10/07/2024 CMP (FEMA LE) potassium 4.3 mmol/ L 3.5-5. 1 Not Available [facility] [address] [facility] 1, [place], [address], 10/07/2024 10:41:55 10/08/19 25 10/07/2024 CMP (FEMA LE) chloride 103.0 mmol/ L 98.0-1 10.0 normal Not Available [facility] [address] [facility] 1, [place], [address], 10/07/2024 10:41:55 10/08/19 25 10/07/2024 CMP (FEMA LE) C02 27.0 mmol/ L 22.0-3 1.0 Not Available [facility] [address] [facility] 1, [place], [address], 10/07/2024 10:41:55 10/08/19 25 10/07/2024 CMP (FEMA LE) anion gap 10.0 calc Not Available [facility] [address] [facility] 1, [place], [address], 10/07/2024 10:41:55 10/08/19 25 10/07/2024 CMP (FEMA LE) osmolality 297.8 calc Not Available [facility] [address] [facility] 1, [place], [address], 10/07/2024 10:41:55 10/08/19 25 10/07/2024 LIPID PROFI LE (FEMA LE) cholesterol 325.0 mg/dL 0.0-20 0.0 high Not Available [facility] [address] [address], [place], [address], 10/07/2024 10:41:58 10/08/19 25 10/07/2024 LIPID PROFI LE (FEMA LE) trig 236.0 mg/dL 0.0-15 0.0 high Not Available [facility] [address] [address], [place], [address], 10/07/2024 10:41:58 10/08/19 25 10/07/2024 LIPID PROFI LE (FEMA LE) HDL - direct 41.0 mg/dL >40.0 Not Available [facility] [address] [facility] 1, [place], [address], 10/07/2024 10:41:58 10/08/19 25 10/07/2024 LIPID PROFI LE (FEMA LE) VLDL - direct 47.2 mg/dL Not Available [facility] [address], [place], [address], 10/07/2024 10:41:58 10/08/19 25 10/07/2024 LIPID PROFI LE (FEMA LE) LDL - direct 236.8 mg/dL 0.0-13 0.0 high Not Available [facility] [address] [facility] [address], [place], [address], 10/07/2024 10:41:58 06/25/19 25 06/08/2024 MAMMO , scree pallavi, bilat eral No observ ation record ed. [address], [place], [address], 08/06/2024 11:19:15 10/09/19 25 10/07/2024 XR, knee, 3 view No observ ation record ed. [address] [facility] [address], [place], [address], 10/14/2024 09:15:57 Result Notes None recorded. Problems Name Problem SNOMED Code Status Onset Date Resolution Date Notes Provider Name and Address Organization Details Recorded Time Trigger finger of right hand 55445724609 [id number] Active 2022 Keisha epstein [facility] 5 07:49:38 Hyperlip idemia 70227311 Active 2023 Keisha epstein [facility] 5 07:49:39 Gastroes ophageal reflux disease without esophagi tis 217819316 Active 2023 Keisha epstein [facility] 5 07:49:39 Umbilica l hernia 528694486 Active 2024 Cesar epstein [facility] 5 09:30:09 Pain of knee region 6786812987 Active 2024 Cesar Dirk epstein, [facility] 5 09:32:40 Osteoart hritis 486393673 Active 2024 Michele Milner [address], [id number] , [facility] 21:58:05 Type 2 diabetes mellitus 35770789 Active 2024 Michele Milner [address], [id number] , [facility] 21:58:05 Morbid obesity 251986283 Active 2022 Keisha Morris [facility] 07:49:39 Angina pectoris 986779680 Active 2022 Keishaphyllis Halee [facility] 5 07:49:39 Bilatera l plantar fasciiti s 58426733515 217213 Active 2022 Keisha Morris [facility] 07:49:38 Arthropa thy 613736848 Active 2021 Michele Milner [address], [address] , [facility] 21:58:27 Dietary manageme nt surveill ance Active 2021 DIETARY COUNSELI NG AND SURVEILL ANCE; Recorded 04/04/20 22 7:16AM by Kamryn Barron RN, Office Visit; Promoted ; acuity set as *; Michele Milner [address], [address] , [facility] 21:58:16 Antonio son type IIa hyperlip oprotein emia [id number] Completed 201509/07/2015 HYPERCHO LESTEROL EMIA (Working Diagnosi s) - Status is Inactive ; Recorded 09/07/19 16 2:03PM by Alphonse Roca MD, Annotati on/Adden dum; Promoted ; acuity set as *; Not Available [facility] 3 03:07:22 Knee pain Completed 202110/07/2024 PAIN IN JOINT, LOWER LEG; Recorded 04/04/20 22 7:16AM by Kamryn Barron RN, Office Visit; Promoted ; acuity set as *; Keishakerry Morris [facility] 5 07:51:10 Problem Notes None recorded. Procedures Surgical History Date Name Laterality Status Provider Name and Address Organization Details Recorded Time total knee replacement completed [facility] 10/07/2024 09:01:54 complete repair of rotator cuff completed [facility] 10/07/2024 09:02:19 Back Surgery completed [facility] 10/07/2024 09:03:02 Imaging Results None recorded. Procedure Notes None recorded. Medical Equipment None Reported. Allergies Allergen ID Allergen Name Allergen Category Reaction Reaction Severity Criticality Documentation Date Start Date Code Code System Note Provider Name and Address Organization Details Recorded Time 55444 Product containin g penicilli n (product) medicatio n Not available Not available Not available 01/05/2023 36648 8001 SNOMED Comme nt: Recor ded 04/04 7:16A M by Rosa sanchez RN, Offic e Visit ; Promo carroll; Dustin dickey ce: *; ; Not Available [facility] 3 02:27:07 64514 propranol ol hydrochlo ride medicatio n Not available Not available Not available 01/05/2023 01674 RxNorm Comme nt: Recor ded 04/04 7:16A M by Rosa sanchez RN, Offic e Visit ; Promo carroll; Signi noble ce: *; ; Not Available [facility] 3 02:27:07 24682 Levaquin medicatio n rash Not available Not available 01/05/2023 17423 2 RxNorm React ion: Rash; Comme nt: Recor ded 04/04 7:16A M by Rosa sanchez RN, Offic e Visit ; Promo carroll; Silvioi noble ce: *; ; Not Available [facility] 3 02:27:07 96200 Celebrex medicatio n Not available Not available Not available 11/18/2024 71947 7 [facility]Norm [facility] 5 12:12:36 56114 Horse antihuman thymocyte gamma globulin medicatio n Not available Not available Not available 11/18/2024 73575 1 RxNorm [facility] 5 12:12:55 19547 tuna oil food Not available Not available Not available 11/18/2024 84675 UNK [facility] 5 12:13:03 29218 Latex (substanc e) environme nt,medica tion Not available Not available Not available 11/18/2024 09586 8007 SNOMED [facility] 5 12:13:12 35802 Substance with sulfonami de structure and antibacte rial mechanism of action (substanc e) medicatio n Not available Not available Not available 11/18/2024 75448 8003 SNOMED [facility] 5 12:13:21 69372 Neurontin medicatio n Not available Not available Not available 11/18/2024 46011 8 RxLucio epstein, [facility]. 5 12:13:29 Medications Name Sig Start Date Stop Date Status Note LastModified by Organization Details LastModified Time doxycycli ne hyclate 100 mg capsule Take 1 capsule twice a day by oral route for 7 days. 04/06 completed Not Available Not Available Not Available meloxicam 15 mg tablet TAKE ONE TABLET BY MOUTH EVERY DAY 2024 active Not Available Not Available Not Avai lable metoprolo l succinate ER 100 mg tablet,ex tended release 24 hr TAKE ONE TABLET TABLET EVERY DAY 2023 active Not Available Not Available Not Avai lable omeprazol e 40 mg capsule,d elayed release TAKE ONE CAPSULE BY MOUTH DAILY 2024 active Not Available Not Available Not Avai lable tramadol 50 mg tablet TAKE ONE TABLET BY MOUTH EVERY 4 TO 6 HOURS NEEDED 2024 active Not Available Not Available Not Avai lable oxycodone -acetamin ophen 5 mg-325 mg tablet 03/24 completed Not Available Not Available Not Available triamcino lone acetonide 0.1 % topical ointment 03/24 completed Not Available Not Available Not Available mometason e 0.1 % topical ointment APPLY TO AFFECTED AREA DAILY NEEDED 03/24 completed Not Available Not Available Not Available albuterol sulfate HFA 90 mcg/actua tion aerosol inhaler Inhale 2 puffs every 4 hours by inhalati on route as needed. active Not Available Not Available No t Available metformin ER 500 mg tablet,ex tended release 24 hr Take 1 tablet every day by oral route. active Not Available Not Available No t Available Nitro-Neo e 2.5 mg capsule,e xtended release TAKE 1 CAPSULE BY MOUTH EVERY 12 HOURS FOR 30 DAYS. 2023 active only taking daily Not Available Not Available Not Available Nitro-Neo e 6.5 mg capsule,e xtended release TAKE ONE CAPSULE BY MOUTH TWICE DAILY 2024 active Not Available Not Available Not Avai lable Ventolin 90 mcg/actua tion aerosol inhaler four times daily, as needed 10/07 completed for sob/coug h/wheezi ng; Recorded 09/28/19 9:57AM by Brina Argueta, Office Visit; Refill Quantity : 1; Containe r; Not Available Not Available Not Available rosuvasta tin 20 mg tablet Take 1 tablet every day by oral route for 90 days. 2024 active Not Available Not Available Not Avai lable rosuvasta tin 40 mg tablet TAKE ONE TABLET BY MOUTH DAILY 2024 active Not Available Not Available Not Avai lable metformin two times daily 04/08 completed DOC RM/bn; 9; Recorded 12/28/19 4:44PM by Meme Galaviz (Authori zed through Addison Perez MD), Refill Request; Refill Quantity : 0; Not Available Not Available Not Available Nitro-Neo e two times daily 03/24 completed CS/smf; 41238; Recorded 04/30/20 11:51AM by Kamryn Barron RN (Authori zed through Aleksandr Littlejohn DO), Refill Request; Refill Quantity : 0; Not Available Not Available Not Available Crestor QD 04/06 completed CS/smf; 68271; Recorded 09/28/19 1:49PM by Kamryn Barron RN (Authori zed through Aleksandr Littlejohn DO), Annotati on/Adden dum; Refill Quantity : 90; Tablet; Not Available Not Available Not Available mometason e furoate (bulk) daily, as needed 03/24 completed cs/smf; 90985; Recorded 09/28/19 1:49PM by Kamryn Barron RN (Authori zed through Aleksandr Littlejohn DO), Annotati on/Adden dum; Refill Quantity : 0; Not Available Not Available Not Available Ozempic 0.25 mg or 0.5 mg (2 mg/1.5 mL) subcutane ous pen injector Inject 0.25 mg every week by subcutan eous route. 2024 active Not Available Not Available Not Avai lable Mounjaro 2.5 mg/0.5 mL subcutane ous pen injector active Not Available Not Available Not Available Ozempic 0.25 mg or 0.5 mg (2 mg/3 mL) subcutane ous pen injector active Not Available Not Available Not Available Vitals Date Recorded Body height Body mass index (BMI) Body weight Oxygen saturation Oxygen saturation in Arterial blood by Pulse oximetry Heart rate Respiratory rate Systolic blood pressure Diastolic blood pressure Systolic blood pressure Diastolic blood pressure Provider Name and Address Organization Details Last Updated DateTime 5 147.32 cm 41.3 kg/m2 01057.8 g 98 % 98 % 89 /min 18 /min 150 mm[Hg] 90 mm[Hg] 138 mm[Hg] 89 mm[Hg] Keisha Morris [facility] 5 09:09:06 Date Recorded Body height Provider Name an d Address Organization Details Last Updated DateTime 11/18/2024 147.32 cm MOJGAN LEIAGER [facility] 11/18/2024 12:06:35 Date Recorded Body mass index (BMI) Body weight Oxygen saturation Oxygen saturation in Arterial blood by Pulse oximetry Heart rate Respiratory rate Systolic blood pressure Diastolic blood pressure Provider Name and Address Organization Details Last Updated DateTime 5 41.6 kg/m2 66140.5 8 g 95 % 95 % 83 /min 18 /min 126 mm[Hg] 80 mm[Hg] Keisha Morris [facility] 5 12:10:35 Date Recorded Body height Body mass index (BMI) Body weight Oxygen saturation Oxygen saturation in Arterial blood by Pulse oximetry Heart rate Respiratory rate Body temperature Systolic blood pressure Diastolic blood pressure Provider Name and Address Organization Details Last Updated DateTime 4 147.32 cm 41.6 kg/m2 89636.8 8 g 96 % 96 % 68 /min 16 /min 98.2 [degF] 136 mm[Hg] 80 mm[Hg] Bernadine Ernandez [facility] 4 11:25:38 Date Recorded Body height Body mass index (BMI) Body weight Respiratory rate Heart rate Oxygen saturation Oxygen saturation in Arterial blood by Pulse oximetry Systolic blood pressure Diastolic blood pressure Provider Name and Address Organization Details Last Updated DateTime 4 147.32 cm 41.2 kg/m2 59317.7 g 18 /min 88 /min 92 % 92 % 144 mm[Hg] 82 mm[Hg] JOHANNA BARRON [facility] 09:28:54 Social History Question Answer Notes LastModified by [employer] Details LastModified Time Tobacco Smoking Status Former Smoker JOHANNA BARRON [facility] 10/03/2022 10:26:52 Are You Blind Or Do You Have Difficulty Seeing? No [email or web address] Information not available 10/03/2022 Are You Deaf Or Do You Have Serious Difficulty Hearing? No [email or web address] Information not available 10/03/2022 When Did You Quit Smoking? 16+yearssinc elastcigaret te [email or web address] Information not available 10/03/2022 Have You Had Direct Contact, Or Contact During Intimacy, With Monkeypox Rash, Scabs, Or Body Fluids From A Person With Monkeypox? No [email or web address] Information not available 10/03/2022 What Is Your Relationship Status? [email or web address] Information not available 10/03/2022 Have You Recently Traveled Abroad? No [email or web address] Information not available 10/03/2022 Do You Have Difficulty Walking Or Climbing Stairs? No [email or web address] Information not available 10/03/2022 Sex: Unknown Functional Status Question Answer Note LastModified by [employer] Details LastModified Time Are you able to walk? YESWOREST [email or web address] Information not available 10/03/2022 Do you have difficulty doing errands alone? No [email or web address] Information not available 10/03/2022 Are you able to care for yourself? Yes [email or web address] Information not available 10/03/2022 Do you have difficulty dressing or bathing? No [email or web address] Information not available 10/03/2022 Mental Status Question Answer Note LastModified by Organization D etails LastModified Time Do you have difficulty concentrating, remembering or making decisions? No [email or web address] Information no t available 10/03/2022 Family History Relationship Description Onset Age of this Age Resolved Age Notes LastModified by Organization Details LastModified Time Father Heart disease 41 [email or web address] Not available 2024 09:03:34 Mother Myocardial infarction [email or web address] Not available 10/07 09:03:42 Mother Cerebrovascu lar accident 85 Not available 09:03:54 Medical History No medical history recorded. Gynecological HistoryNo gynecological history recorded. Obstetrics History GPAL:G 0 P 0 0 0 0 Immunizations Vaccine Type Date Status Note Provider Nam e and Address Organization Details Recorded Time Tdap 2 completed Not Available [facility] 01/05/2023 02:50:57 Influenza, split virus, trivalent, preservative 6 completed Not Available [facility] 01/05/2023 02:50:57 Influenza, split virus, trivalent, preservative 4 completed Not Available [facility] 01/05/2023 02:50:57 COVID-19, mRNA, LNP-S, PF, 100 mcg/0.5mL dose or 50 mcg/0.25mL dose 1 completed Not Available [facility] 11/18/2024 10:53:25 COVID-19, mRNA, LNP-S, PF, 100 mcg/0.5mL dose or 50 mcg/0.25mL dose 1 completed Not Available [facility] 11/18/2024 10:53:25 Past Encounters Encounter ID Performer Location Encounter Start Date Encounter Closed Date Diagnosis/Indication Diagnosis SNOMED-CT Code Diagnosis ICD10 Code Diagnosis Note [id number] Aleksandr Littlejohn DO [facility]) [address] [place] [phone] 10/03/2022 10:16:35 10/03/2022 17:13:54 Type 2 diabetes mellitus without complication 379033721 E11.9 a1c stable at 7.2 Morbid obesity 405509338 E66.01 Angina pectoris 75459733 0 I20.9 Hypercholesterolemia 136 33506 E78.00 on statin; LDL 140 Bilateral plantar fasciitis 1492557446 4866949 M72.2 she will stretch and ice her feet every night [id number] Aleksandr Littlejohn DO [facility] ([facility]) [address] [place] [phone] 5 04/01/2023 08:03:14 04/02/2023 18:51:15 Hypercholesterolemia 04409002 E78.00 on statin; LDL 140 Type 2 gt betes mellitus without complication 058467366 E11.9 a1c stable at 7.2 [id number] Aleksandr Littlejohn DO [facility] ([facility]) [address] [place] [address] 5 04/08/2023 09:45:46 04/08/2023 13:42:35 Type 2 diabetes mellitus without complication 930710381 E11.9 Hypercholesterolemia 136 32282 E78.00 on statin Trigger fi nger of right hand 4914682648 4530994 M65.30 [id number] Aleksandr Littlejohn DO [facility] ([facility]) [address] [place], [place] [address] 09/30/2023 08:58:08 10/01/2023 11:22:14 Type 2 diabetes mellitus without complication 173908959 E11.9 Angina pectoris 90891326 0 I20.9 [id number] Aleksandr Littlejohn DO [facility] ([facility]) [address] [place], [place] [address] 10/07/2023 08:51:15 10/07/2023 09:30:17 Type 2 diabetes mellitus without complication 906144359 E11.9 Hyperlipidemia 03402569 E78.2 Gastroesop hageal reflux disease without esophagitis 012711085 K21.9 [id number] FAIZA ROY [facility] ([facility]) [address] [place] [id number] 5 03/24/2024 11:18:58 03/24/2024 12:17:01 Acute bacterial bronchitis 623014611 J20.9 Discussed use of otc medication s for symptom management .Push oral fluids and rest.If you develop fever, sob, or start feeling worse then return for re-evaluat ion. [id number] Aleksandr Littlejohn DO [facility] ([facility]) [address] [place] [id number] 03/30/2024 09:45:16 03/31/2024 10:26:25 Hypercholesterolemia 76557501 E78.00 on statin Type 2 gt betes mellitus without complication 049400345 E11.9 [id number] Aleksandr LittlejohnDO [facility] ([facility]) [address] [place] [id number] 04/06/2024 09:21:10 04/06/2024 10:11:48 Type 2 diabetes mellitus without complication 586401102 E11.9 Hernia of anterior abdominal wall 571695101 K43.9 [id number] Michele Milner DO [facility] ([facility]) [address] [place] [phone] 5 10/07/2024 08:49:29 10/07/2024 15:37:55 Type 2 diabetes mellitus without complication 733214443 E11.9 pt with DM with complicati ons as below Hyperlipidemia 58935335 E78.2 Lipid panel today, not taking a statin, will consider. Gastroesop hageal reflux disease without esophagitis 329756765 K21.9 Stable on Omeprazole . Morbid obesity 060383403 E66.01 Counseled on diet and exercise. Osteoarthritis 770991358 E66.01 Taking Meloxicam, will refill. Type 2 gt betes mellitus 08911407 E11.69 E11.59 10/07/24: lab today. Continue Metformin. Counseled on diet and exercise. I reviewed most recent labs with pt as per above. We reconciled medication s. We discussed diet, exercise, weight management . We discussed routine eye care and foot care. Pt to monitor glucose regularly. Umbilical hernia 6596520 07 K42.9 Counseled on diagnosis, treatment options including medication s and possible side effects. I recommend she see a Surgeon to discuss interventi on. Pt agrees, she will discuss with family and get back to me regarding which provider she prefers referral to. Pain of knee region 1003 027423 M25.562 G89.29 10/07/24: pt hannah peralta, prefers to see Dr. Partida when this time comes. [id number] Michele Milner DO [facility] ([facility]) [address] [place] [phone] 11/18/2024 10:46:47 11/25/2024 09:15:48 Morbid obesity 086007751 E66.01 Counseled on diet, sugar and portion control, and exercise. Type 2 gt betes mellitus 47152025 E11.69 E11.59 11/18/24: Start Mounjaro. Counseled on diagnosis, treatment options including medication s and possible side effects. Continue working on diet and exercise. Continue Metformin. F/u 1 month.10/07: lab today. Continue Metformin. Counseled on diet and exercise. I reviewed most recent labs with pt as per above. We reconciled medication s. We discussed diet, exercise, weight management . We discussed routine eye care and foot care. Pt to monitor glucose regularly. Hyperlipidemia 86959175 E78.2 Not taking statin, counseled on diet and exercise. Will continue to monitor lipids. Umbilical hernia 8254831 07 K42.9 11/18/24: Has consulted Surgeon, working on weight loss and DM management prior to performing surgery. Health Concerns Section Related Observation LastModified by Organization Detai ls LastModified Time None Recorded Concern Status LastModified by Organization Details LastModified Time None Recorded Advance Directives Directive None Recorded Payers Insurance Date Sequence Insurance Name Policy Number Policy Cardoso Covered Member ID Cardoso Member ID Guarantor Name 11/15/2024 1 [place] Michelle Héctor Tono [id number] [place] Héctor Tono 11/25/2024 2 [employer] (MEDICARE SUPPLEMENT) Michelle A Tono [id number] [place] A Tono 11/15/2024 [place] - [facility] (MEDICARE) Michelle Héctor Tono [id number] 4 [place] Héctor Tono Notes Date Note Type Note Provider Name and Address Organization Details Recorded Time 03/24/2024 text/html walk in patientp atient is here today for shortness of breath, cough, and congestion for over a weekpatient did a home covid test and it was negative. Has not taken any otc meds. Is drinking/eating normally. felt sweaty last night. Increased wheezing. Is out of her ventolin inhaler. MARÍA HAMMER, [employer]PERVISOR IN CHARGE [address] [place], [address], [facility], [place] 03/24/2024 12:11:22 04/06/2024 text/html DiabetesReported bypatient.Duration:chr onic Control:usually well controlled Compliance:compliant with medications; compliant with follow-up visits Associated Symptoms:no sweats; no headaches; no confusion; no increased thirst Aleksandr Littlejohn, DO [address] [place], [address], [facility], [place]. 04/06/2024 10:02:17 10/07/2024 text/html Pt presents to establish care/transition of care from Dr. Littlejohn, previous PCP[facility] visit No recent ER visits or hospitalizations. No recent medications changes or abx tx. Last labs done on 03/30/24 H/o DM.A1c 7.9 on 03/30/24.She admits she doesn't monitor her glucose at home.Taking Metformin, tolerating well.Denies any new feet or vision problems. H/o HLD, not taking a statin.Lab 03/30/24:Chol 227, Tri 1888, HDL 41, LDL 148. H/o Asthma, intermittent SOB that she is able to get control of. She wants to discuss abd hernia that she was informed of per Dr. Littlejohn. Noticed this approx 1 year ago. She reports this becomes firm occasionally, more noticable when she stands up.H/o Appendectomy numerous years ago, no other abd surgeries. Requesting 90 day supply on Meloxicam C/o twisted left knee 3 times in last 2 months, she has had 3 falls in the last 2 months. These falls have occurred d/t accident, slipping in mud, tripping, denies weakness causing falls.Daughter present to help pt up from falls.H/o 3 surgeries on the left knee, torn ACL x2. She has chronic left knee pain. H/o R TKA.Has chronic R hip pain. She's had a lipoma for years, not bothering her, no change in size. Michele Milner, DO [address] [place], [address], [facility], [place]. 10/08/2024 16:06:54 10/07/2024 text/html Annual WellnessReported bypatient.Diet and Nutrition:healthy diet Fracture Risk:no recent explained fracture; no sudden unexplained fractures;history of fractures;previous musculoskeletal injuries Physical Activity:does not exercise on a regular basis;decreased physical activity;poor physical condition;deconditione d due to sedentary lifestyle Additional Lifestyle Factors:no tobacco use; no alcohol intake Depression Risk:never feels sad, empty, or tearful; no loss of interest in activities; no significant changes in weight; no sleep disturbances or insomnia; no agitation; no loss of energy; no feelings of worthlessness or guilt; no thoughts of suicide; no history of depression; no history of mood disorders Hearing:no loss of hearing Vision:no vision problems Michele Milner, DO [address] [place] [address], [phone], [facility] 10/08/2024 16:06:54 11/18/2024 text/html Pt presents visi t today to discuss weight loss options. She has a periumbilical hernia, has consulted with Surgeon, has to lose 15 lbs before they will consider surgery. H/o DM.A1c last 8.1 on 10/07/24. This needs to be below 6.9 for surgery.Taking Metformin for her DM, tolerating well. Hasn't taken any other DM meds in the past. H/o HLD, lipid panel last 10/07/24:Chol 325, Tri 236, HDL 41, LDL 236. She denies sleep apnea issues. Michele Milner, [address] [place] [address], [phone], [facility] 11/25/2024 07:49:01 OBGyn Episode No OBEpisode recorded.
--- OUTSIDE RECORDS SUMMARY | 2024-12-08 15:00 | XMS_ITS | Patient Health Record ---
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 Name Role Phone Littlejohn Aleksandr HERNANDEZ Primary Care Provider Unavailflorence Mcghee MD, Artem Unavailable [phone] Scott Goodwin DO Unavailable Unavailable Allergies Allergen (clinical drug ingredient) Drug/Non Drug Allergy documented on EMR Reaction Allergy Type Onset Date Status horse serum (uncoded) Unknown Allergy Active Latex latex (uncoded) Unknown Allergy Acti ve tuna (uncoded) Unknown Allergy Activ e gabapentin Neurontin Unknown Drug Allergy Active Inderal Unknown Drug Allergy Active Levaquin Unknown Drug Allergy Active penicillin Unknown Drug Allergy Active Reason For Referral No Information Medications Medication SIG (Take, Route, Fr equency, Duration) Notes Start Date End Date Status nitroglycerin 6.5 mg 1 cap orally 2 times a day Active Repatha 140 mg/mL subcutaneously every 2 weeks Active Mobic 15 mg 1 tab orally once a day for 30 day(s) Active NexIUM 40 mg 1 cap orally once a day for 30 day(s) Active Crestor 40 mg 1 tab orally once a day (at bedtime) for 30 day(s) Active Toprol-XL 100 mg 1 tab orally once a day for 30 day(s) Active metFORMIN 500 mg 1 tab orally 2 times a day Active traMADol 50 mg 1 tab orally every 4-6 hours Active Social History Tobacco Use: Social History Observation Description Date Details (start date - stop date) Never Smoker NA - NA alcohol Question Answer Notes Did you have a drink containing alcohol in the p ast year? No Points 0 Interpretation Negative Tobacco use: Question Answer Notes : nonsmoker Problems Problem Type SNOMED Code ICD Code Onset Dates Problem Status W/U Status Risk Notes Problem Displacement of lumbar intervertebral disc without myelopathy (45598921) Lumbar (w/out myelopathy) intervertebral disc disorder (722.10) Active confirmed Problem Long-term drug therapy (424074166) LONG-TERM USE MEDS NEC (V58.69) Active confirmed r/o substance abuse Problem Lumbosacral spondylosis without myelopathy (60046174) Lumbosacral spondylosis without myelopathy (721.3) Active confirmed Problem Solitary sacroiliitis (806595143) Sacroiliitis (720.2) Active confirmed Problem Radiculopathy (75419590) Radiculopathy (729.2) Active confirmed Problem Lumbar post-laminectomy syndrome (989515804) Postlaminectomy syndrome (lumbar region) (722.83) Active confirmed Problem Solitary sacroiliitis (856355096) Sacroiliitis, not elsewhere classified (M46.1) Active confirmed Problem Lumbosacral spondylosis without myelopathy (82048345) Spondylosis without myelopathy or radiculopathy, lumbar region (M47.816) Active confirmed Problem High risk drug monitoring status (010012560) 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) Active confirmed Problem Hypersomnia (12760551) Hypersomnia, unspecified (G47.10) Active confirmed Problem Radiculopathy due to lumbar intervertebral disc disorder (132526330188778 ) Intervertebral disc disorders with radiculopathy, lumbar region (M51.16) Active confirmed Problem Post-laminectomy syndrome (37953572) Postlaminectomy syndrome, not elsewhere classified (M96.1) Active confirmed Plan Of Treatment No Information Insurance Providers Payer Name Payer Address Payer Phone Subscriber Number Group Number Insured Name Patient Relationship to Insured Coverage Start Date Coverage End Date [employer] Medicare Part B Claims Department [address] [address] [place] [address] [phone] [id number] [place], [place] Self - patient is the insured [place] [facility] [address] [place] [place] [phone] [id number] [place], [place] Self - patient is the insured Medical (General) History Medical History History ICD Code Chronic pain syndrome Heart murmur Asthma Hypercholesterolemia Hypertension Mitral valve prolapse Diabetes mellitus Neuoropathy, feet Surgical History Surgery Date(Month/Year) Appendectomy, 1969 Tonsillectomy, 1970 , 1982 Tubal, 1982 Urethra repair, 1994 Hysterectomy, 1994 Angiogram, 1999 Laminectomy, 10/2005 Neurostimulator trial, 11/2008 Neurostimulator implant, performed at [facility] by Dr. Hale 01/2009 Cataracts, bilateral, 2012 Repair of right rotator cuff, performed at [facility] by Dr. Goodwin, 01/10/17 Right knee repair, performed at [facility] by Dr. Goodwin x 3, 2014, 2017 Hospitalization History Reason Date(Month/Year)
--- NOTE | 2024-12-08 15:06 | XRR_ITS ---
PROCEDURE INFORMATION: Exam: XR Left Wrist Exam date and time: 12/08/2024 3:11 PM Age: 74 years old Clinical indication: Injury or trauma; Fall; Blunt trauma (contusions or hematomas); Wrist; Left; Additional info: Traumua TECHNIQUE: Imaging protocol: Radiologic exam of the left wrist. Views: 3 or more views. COMPARISON: CT Up Extremity wwo LEFT [id number] 10/17/2018 9:04 AM FINDINGS: Bones/joints: No acute fracture or dislocation. Redemonstrated severe degenerative changes most pronounced along the 1st carpometacarpal joint with kxaz-pv-daczzjgl degenerative changes throughout the remainder of the wrist. Stable oblong ossific density adjacent to the distal radius, likely calcific tendinitis or remote injury. Soft tissues: Mild soft tissue swelling most pronounced along the medial aspect of the wrist. XR/XR wrist LT min 3V* [id number] IMPRESSION: 1. No definite acute osseous findings. 2. Similar severe degenerative changes most pronounced along the 1st CMC joint.
--- NOTE | 2024-12-08 15:06 | XRR_ITS ---
PROCEDURE INFORMATION: Exam: XR Lumbosacral Spine Exam date and time: 12/08/2024 3:14 PM Age: 74 years old Clinical indication: Injury or trauma; Fall; Blunt trauma (contusions or hematomas) TECHNIQUE: Imaging protocol: Radiologic exam of the lumbosacral spine. Views: 2 or 3 views. COMPARISON: CR XR lumbar spine min 4V [id number] 02/04/2024 8:19 AM FINDINGS: Tubes, catheters and devices: Right sided dorsal column stimulator with leads overlying the thoracic spine. Bones/joints: Mild rightward curvature of the lumbar spine. No acute fracture. Vertebral body heights are maintained. Similar grade 1 anterolisthesis at L4-L5. Moderate to advanced degenerative changes also seen at L4-L5. Soft tissues: Unremarkable. XR/XR lumbar spine 2-3V* [id number] IMPRESSION: No acute osseous findings.
--- NOTE | 2024-12-08 15:50 | CTR_ITS ---
PROCEDURE INFORMATION: Exam: CT Left Lower Extremity Without Contrast, Knee Exam date and time: 12/08/2024 4:03 PM Age: 74 years old Clinical indication: Injury or trauma; Fall; Blunt trauma; Knee; Left; Additional info: Trauma/unable to bear weight TECHNIQUE: Imaging protocol: CT of the left lower extremity without contrast was performed. Exam focused on the knee. Radiation optimization: All CT scans at this facility use at least one of these dose optimization techniques: automated exposure control; mA and/or kV adjustment per patient size (includes targeted exams where dose is matched to clinical indication); or iterative reconstruction. COMPARISON: CR XR knee LT 3V* [id number] 12/08/2024 3:07 PM RADIATION DOSE METRICS: Total DLP (mGy-cm): 297.73 FINDINGS: Bones/joints: No acute fractures visualized. No dislocation. Moderate to severe narrowing of the medial compartment with near wdsb-jw-ysod articulation. Subchondral sclerosis along the medial femoral condyle and medial tibial plateau along with subarticular cystic changes. Tricompartmental marginal osteophytes. Fpwc-iy-qieznbfn narrowing of the patellofemoral compartment. Soft tissues: Mild prepatellar soft tissue swelling. CT/CT knee LT wo con* [id number] IMPRESSION: 1. No acute osseous findings. MRI could be considered for further assessment if there is concern for internal derangement. 2. Mild prepatellar soft tissue swelling. 3. Tricompartmental degenerative changes most pronounced in the medial compartment.
[2024-12-08 17:10] VITALS: BP 161/91; PULSE 78; O2SAT 98
== END 2024-12-08 17:24 | disposition home or self-care (01) ==
PROVIDERS: Emergency Provider Family Medicine; PCP Electrodiagnostic Medicine
DX: S83.92XA Sprain of unspecified site of left knee, initial encounter (principal); Z79.84 Long term (current) use of oral hypoglycemic drugs; W10.9XXA Fall (on) (from) unspecified stairs and steps, initial encounter
CPT/HCPCS: 29530; 72100; 73110; 73562; 73610; 73700; 99284; L1830

== ENCOUNTER 2024-12-29 10:13 | Outpatient (CLI) | payer MEDICARE, OTHER, SELFPAY ==
--- NOTE | 2024-12-29 10:15 | CT_ITS ---
WS: [id number] CT LEFT knee, noncontrast HISTORY: M17.12 - Unilateral primary osteoarthritis, left knee TECHNIQUE: Protocol for ANNETTA total knee replacement has been obtained. This includes axial imaging through the LEFT hip, LEFT knee and LEFT ankle. DLP: 916.89 mGy.cm COMPARISON: 12/08/2024 Hips: Degenerative air in the SI joints. Mild diffuse narrowing of the hip joint. No destructive bone lesions. Mild sigmoid diverticulosis. LEFT knee: Moderate tricompartment osteoarthritis. Osteophytes and joint space narrowing in all compartments. No significant joint effusion. LEFT ankle: Unremarkable. CT/CT knee LT [facility] [id number] IMPRESSION: CT imaging provided for [facility] robotic total knee replacement.
== END 2024-12-29 10:14 | disposition home or self-care (01) ==
LOC: RAD 10:16
PROVIDERS: PCP Electrodiagnostic Medicine; Visit Provider Student in an Organized Health Care Education/Training Program
DX: M17.12 Unilateral primary osteoarthritis, left knee (principal)
CPT/HCPCS: 73700

== ENCOUNTER → 2025-01-05 09:33 | Outpatient (BNVA) | payer MEDICARE, OTHER, SELFPAY | PROVIDERS: PCP Electrodiagnostic Medicine; Visit Provider Physician Assistant | DX: Z01.818 Encounter for other preprocedural examination (principal); E11.9 Type 2 diabetes mellitus without complications | CPT/HCPCS: 36415; 80053; 81001; 83036; 85025; 87086; 99213 ==

== ENCOUNTER → 2025-01-06 15:07 | Outpatient (BNVA) | payer MEDICARE, OTHER, SELFPAY | PROVIDERS: PCP Electrodiagnostic Medicine; Visit Provider Podiatrist Foot & Ankle Surgery | DX: E11.42 Type 2 diabetes mellitus with diabetic polyneuropathy (principal); L60.3 Nail dystrophy; M19.079 Primary osteoarthritis, unspecified ankle and foot; G62.9 Polyneuropathy, unspecified; Z79.84 Long term (current) use of oral hypoglycemic drugs | CPT/HCPCS: 11721 ==

== ENCOUNTER → 2025-02-02 10:47 | Outpatient (BNVA) | payer MEDICARE, OTHER, SELFPAY | PROVIDERS: PCP Electrodiagnostic Medicine; Visit Provider Student in an Organized Health Care Education/Training Program | DX: M17.12 Unilateral primary osteoarthritis, left knee (principal); M54.50 Low back pain, unspecified; M25.551 Pain in right hip | CPT/HCPCS: 73502; 99213 ==

== ENCOUNTER 2025-02-11 07:39 | Outpatient (CLI) | payer MEDICARE, OTHER, SELFPAY ==
--- NOTE | 2025-02-11 08:00 | CT_ITS ---
WS: [id number] CT LEFT KNEE, NONCONTRAST [facility] TECHNIQUE: Noncontrast CT of the LEFT knee to include the LEFT hip and ankle. CLINICAL INFORMATION: left total knee arthroplasty COMPARISON: None. DLP: 908.[address] scans at [facility] use at least one of these dose optimization techniques: automated exposure control; mA and/or kV adjustment per patient size (includes targeted exams where dose is matched to clinical indication); or iterative reconstruction. FINDINGS: Advanced degenerative arthritis LEFT knee. Hypertrophic patella. Small suprapatellar effusion. Sigmoid diverticulosis. Tiny fat-containing umbilical hernia partially visualized. Moderate degenerative narrowing both hips LEFT greater than RIGHT. CT/CT knee LT ANNETTA [id number] IMPRESSION: Images obtained for preoperative purposes.
== END 2025-02-11 07:40 | disposition home or self-care (01) ==
LOC: RAD 07:40
PROVIDERS: PCP Electrodiagnostic Medicine; Visit Provider Physician Assistant
DX: M17.12 Unilateral primary osteoarthritis, left knee (principal); M25.462 Effusion, left knee
CPT/HCPCS: 73700

== ENCOUNTER → 2025-02-16 14:52 | Outpatient (BNVA) | payer MEDICARE, OTHER, SELFPAY | PROVIDERS: PCP Electrodiagnostic Medicine; Visit Provider Orthopaedic Surgery | DX: M43.16 Spondylolisthesis, lumbar region (principal) | CPT/HCPCS: 72110; 99213 ==

== ENCOUNTER → 2025-02-17 08:51 | Outpatient (BNVA) | payer MEDICARE, OTHER, SELFPAY | PROVIDERS: PCP Electrodiagnostic Medicine; Visit Provider Physician Assistant | DX: M17.12 Unilateral primary osteoarthritis, left knee (principal) | CPT/HCPCS: 36415; 80053; 81001; 85025; 87086; 99213 ==

== ENCOUNTER → 2025-02-23 09:12 | Outpatient (BNVA) | payer MEDICARE, OTHER, SELFPAY | PROVIDERS: PCP Electrodiagnostic Medicine; Visit Provider Family Medicine | DX: Z01.818 Encounter for other preprocedural examination (principal); R94.31 Abnormal electrocardiogram [ECG] [EKG] | CPT/HCPCS: 93005 ==

== ENCOUNTER 2025-03-05 08:57 | Outpatient (CLI) | payer MEDICARE, OTHER, SELFPAY ==
--- NOTE | 2025-03-05 09:26 | CT_ITS ---
WS: [id number] CT MYELOGRAM LUMBAR SPINE HISTORY: back pain TECHNIQUE: Contiguous 2.5 mm axial imaging performed from T12 through the mid sacral level. Bone and soft tissue windows reviewed. Sagittal and coronal reformats are submitted and reviewed. DLP: 983.[address] scans at [facility] use at least one of these dose optimization techniques: automated exposure control; mA and/or kV adjustment per patient size (includes targeted exams where dose is matched to clinical indication); or iterative reconstruction. COMPARISON: 09/12/2023 Good contrast opacification of the subarachnoid space lumbar spine. L4 anterolisthesis by 5.8 mm. Advanced degenerative disc space narrowing with vacuum disc phenomenon at L4-5. There is near bone upon bone at the L4-5 level. Degenerative air in the RIGHT L4-5 facet joint. L5 is partially sacralized. T11-12: Small central disc protrusion effacing ventral CSF. Mild facet arthritis. No high-grade stenosis. T12-L1: Diffuse disc bulging with a central disc protrusion. Mild facet arthritis. No high-grade stenosis. L1-L2: Mild diffuse annular disc bulging with mild bilateral facet arthritis. Mild effacement of ventral CSF. No high-grade stenosis. L2-L3: Mild diffuse annular disc bulging with ligamentum flavum and mild facet arthritis. Very mild narrowing of the subarticular recesses. L3-L4: Mild annular disc bulging and osteophytic ridging. Effacement of ventral CSF. There is very slight contact on the traversing L4 nerve roots, LEFT greater than RIGHT. Mild ligamentum flavum and facet arthritis. Mild central, subarticular recess and no foraminal stenosis. L4-L5: Anterolisthesis of L4 with unroofing of the disc. Diffuse disc bulging effacing and displacing the ventral thecal sac. Moderate to severe central with bilateral subarticular recess and foraminal stenosis. Marked facet arthritis. L5-S1: Mild disc bulging and osteophytic ridging. No RIGHT foraminal stenosis. Mild LEFT foraminal stenosis predominately due to osteophyte and facet disease. Degenerative air in the SI joints. Atherosclerosis abdominal aorta. CT/CT lumbar spine w con [id number] IMPRESSION: 1. Grade 1 anterolisthesis of L4. Anterolisthesis by 5.8 mm with no change sin ce 09/12/2023. 2. Advanced degenerative disc space narrowing at L4-5 with near bone upon bone . 3. L4-5: Moderate to severe central with bilateral subarticular recess and for aminal stenosis due to combination of factors as above. 4. Small central disc protrusions and disc bulging at T11-12, T12-L1 and L1-2 with no significant stenosis. 5. Mild subarticular recess narrowing at L2-3. 6. L3-4: Mild central, subarticular recess and neural foraminal stenosis. Mild disc contact on the L4 nerve roots, LEFT greater than RIGHT. 7. Mild LEFT bony foraminal stenosis at L5-S1. 8. L5 is partially sacralized.
--- NOTE | 2025-03-05 09:30 | IR_ITS ---
WS: [id number] LUMBAR MYELOGRAM HISTORY: back pain COMPARISON: None available. FLUOROSCOPY TIME: 2min [id number] # of spot films: 3 Procedure, risks and complications were explained to the patient. Risks including bleeding, infection, headaches, allergic reaction and seizures. Consent has been obtained. With the patient in prone position the skin over the lumbar region is cleansed with ChloraPrep and anesthetized with lidocaine. 22-gauge spinal needle is inserted into the thecal sac at the appropriate level determined by fluoroscopy. Omnipaque 240; 12 ml is injected slowly under fluoroscopy with no complications. Needle bevel is perpendicular to the longitudinal fibers of the dura. Stylet is reinserted prior to removal of the needle. Patient tolerated the procedure well. Patient will proceed to CT for further evaluation. Contrast injection. There is abrupt termination of the contrast column at the L4-5 level which is consistent with the previously described stenosis. IR/IR myelogram sp lumbar [id number] IMPRESSION: 1. Uncomplicated lumbar myelogram. Patient to proceed to CT. 2. Termination of the contrast column at the L4-5 level from a known high-grad e stenosis and anterolisthesis at L4.
[2025-03-05] MEDS: iohexol 240 mg/mL 50 mL Btl 20 ML INTRATHECA (11:54)
== END 2025-03-05 08:58 | disposition home or self-care (01) ==
LOC: RAD 08:58
PROVIDERS: PCP Electrodiagnostic Medicine; Visit Provider Orthopaedic Surgery
DX: M43.16 Spondylolisthesis, lumbar region (principal)
CPT/HCPCS: 62304; 72132

== ENCOUNTER → 2025-03-09 08:24 | Outpatient (BNVA) | payer MEDICARE, OTHER, SELFPAY | PROVIDERS: PCP Electrodiagnostic Medicine; Visit Provider Orthopaedic Surgery | DX: M48.061 Spinal stenosis, lumbar region without neurogenic claudication (principal); Z09 Encounter for follow-up examination after completed treatment for conditions other than malignant neoplasm | CPT/HCPCS: 99213 ==

== ENCOUNTER 2025-03-15 14:55 | Observation (INO) | payer MEDICARE, OTHER, SELFPAY ==
[2025-03-15] VITALS (20 sets, daily range): BP systolic 107–199; BP diastolic 55–104; PULSE 70–107; RESP 7–19; TEMP 36.3–36.9; O2SAT 90–99; BMI 39.6
[2025-03-15] MEDS: acetaminophen 1,000 MG/100 ML PIGGYBACK 400 MG IV ×2 (07:40→16:36)
[2025-03-15 08:05] LABS: Hematocrit 39.6 % (36-47); Hemoglobin 13.40 g/dL (11.27-16.99); Mean Corpuscular HGB Conc 33.8 g/dL (30-55); Mean Corpuscular Hemoglobin 27.7 pg (27-33); Mean Corpuscular Volume 82.0 fl (85-98); Nucleated Red Blood Cells % 0 %; Platelet Count 278 10^3/cmm (157-399); Red Blood Count 4.83 10^6/uL (3.85-5.65); White Blood Count 8.17 10^3/uL (3.29-11.43)
--- NOTE | 2025-03-15 08:07 | W.PM.OPSUD ---
Surgery/Procedure H&P Update DATE OF PROCEDURE: March 15, 2025 DATE H&P PERFORMED: 02/17/25 H&P UPDATE INFORMATION: I have reviewed H&P completed within last 30 days, I have examined patient prior to procedure and No changes to prior documentation PREOP DIAGNOSIS: Left knee DJD PRIMARY INDICATION FOR PROCEDURE: Left knee DJD PLANNED PROCEDURE: Operation Date: 03/15/25 10:55 Proposed Procedures p Jak Robot Total Knee Arthroplasty(Left) - Baljinder Partida DO
[2025-03-15 08:20] LABS: Anion Gap 19.9 (5-19); Blood Urea Nitrogen 16 mg/dL (8-23); Calcium 9.6 mg/dL (8.5-10.5); Carbon Dioxide 23 mmol/L (22-29); Chloride 103 mmol/L (98-107); Creatinine Clr Calc Pharmacy 81.3951; Glucose 191 mg/dL (65-115); Osmolality Calculated 298 mOsm/kg (285-295); Potassium 4.9 mmol/L (3.5-5.1); Sodium 141 mmol/L (136-145)
--- NOTE | 2025-03-15 08:29 | ANES.PREANE2 ---
Pre-Anesthetic Assessment Height/Weight: Height 4 ft 10 in Weight 190 lb BP O2 Del Method 199/104 Room Air 03/15/25 07:43 03/15/25 07:13 Preop Diagnosis: Left knee DJD Operation Date: 03/15/25 10:55 Proposed Procedures p Jak Robot Total Knee Arthroplasty(Left) - Baljinder Partida, DO Was Beta Agusto taken within 24 hours: N/A Was Clonidine taken within 24 hours: N/A Last intake: Intake Last Liquid Date 03/14/25 Last Liquid Time 22:00 Last Solid Date 03/14/25 Last Solid Time 18:00 Social No alcohol and No tobacco Exam alert, oriented x 3, clear to auscultation bilaterally and regular rate & rhythm Mild ejection flow murmur noted on auscultation Airway Submandibular: within normal limits Cervical ROM: within normal limits Mallampati: Class III Dentition: false Anesthetic Plan ASA status: 3 Anesthesia: General and Regional (specify below) Other: No prior issues with anesthesia NPO since yesterday evening History of hypertension on metoprolol Type 2 diabetes, no insulin. Preop BS 164 Asthma, controlled with inhalers History of spondylolisthesis at L4-L5. Recent myelogram in which they had difficulty placing contrast. Severe spinal stenosis noted Labs reviewed from 02/17/2025 and acceptable for procedure EKG sinus rhythm Plan for general anesthesia with peripheral nerve block Medications/Allergies Home Medications ?Medication ?Instructions ?Recorded ?Confirmed ?Last Taken ?Type albuterol sulfate 90 mcg inhalation DIRECTED PRN 01/07/23 03/11/25 03/11/25 History shortness of breath meloxicam 15 mg tablet 15 mg PO DAILY 01/07/23 03/11/25 03/13/25 History metformin 500 mg tablet 500 mg PO DAILY 01/07/23 03/11/25 03/13/25 History metoprolol succinate 100 mg 100 mg PO DAILY 01/07/23 03/15/25 03/15/25 06:00 History tablet,extended release 24 hr mometasone 0.1 % topical cream 1 applic topical DAILY 01/07/23 03/11/25 03/13/25 History nitroglycerin 6.5 mg 6.5 mg PO BID 01/07/23 03/11/25 03/11/25 History capsule,extended release rosuvastatin 40 mg tablet (Crestor) 40 mg PO DAILY 01/07/23 03/11/25 03/13/25 History tramadol 50 mg tablet 50 mg PO BID PRN pain' 01/07/23 03/11/25 03/13/25 History diabetic shoes with 3 inserts #1 ea 08/03/24 03/09/25 Unknown Rx isosorbide mononitrate 30 mg 30 mg PO DAILY 03/15/25 03/15/25 03/13/25 History tablet,extended release 24 hr Allergies Allergy/AdvReac Type Severity Reaction Status Date / Time latex Allergy Severe ADR-Itching Verified 03/15/25 07:22 Penicillins Allergy Severe ALGY-Rash Verified 03/15/25 07:22 gabapentin (From Neurontin) Allergy Intermediate ADR-Itching Verified 03/15/25 07:22 levofloxacin (From Levaquin) Allergy Intermediate ADR-Itching Verified 03/15/25 07:22 Sulfa (Sulfonamide Allergy Intermediate Unknown Verified 03/15/25 07:22 Antibiotics) tuna Allergy Severe ADR-Vomitin Uncoded 03/15/25 07:22 g horse serum TD Allergy Intermediate ALGY-Redness Uncoded 03/15/25 07:22 of Skin inderal Allergy Intermediate ADR-Nausea Uncoded 03/15/25 07:22 Current Medications Generic Name Dose Route Start Last Admin Trade Name Freq PRN Reason Stop Dose Admin Sodium Chloride 1,000 mls @ 30 mls/hr 03/15/25 07:00 03/15/25 07:36 Sodium Chloride 0.9% IV 03/16/25 06:59 30 mls/hr .Q24H KUNAL Administration PFSH Anesthesia Social History Smoking and tobacco/nicotine status: never used tobacco/nicotine Data Anesthesia 03/15/25 07:47 03/15/25 07:47 Short CBC 03/15/25 Range/Units 07:47 WBC 8.17 (3.29-11.43) 10^3/uL Hgb 13.40 (11.27-16.99) g/dL Hct 39.6 (36-47) % MCV 82.0 L (85-98) fl Plt Count 278 (157-399) 10^3/cmm Neut % (Auto) 65.6 % Neut # (Auto) 5.36 (1.8-7.7) 10^3/uL BMP 03/15/25 07:47 Sodium 141 Potassium 4.9 Chloride 103 Carbon Dioxide 23 BUN 16 Creatinine 0.5 Glucose 191 H Calcium 9.6
--- NOTE | 2025-03-15 11:08 | ANES.PROC ---
Anesthesia Procedures Procedure/Date: 03/15/25 Left adductor canal block for postoperative pain control Nerve Block ^: Nerve Block 1: Main Anesthesia: general anesthesia Time Out Performed: Yes Consent: requested by attending/covering physician and from patient Laterality: Left Nerve block location: adductor canal Anesthesia monitors applied: pulse oximetry, EKG, BP cuff and oxygen Nerve block position: supine Anesthetic Used: ropivicaine 0.5% Amount of anesthesia used (mL): 15 Ultrasound used to: recognize landmarks Nerve Stimulator Used?: Yes Interscalene/Femoral BLK: other needle (pjunk 4inch) Injection: neg aspiration of heme Patient Tolerated Procedure: well Complications: none
[2025-03-15] MEDS: tranexamic acid 1,000 mg/10mL SDV 1000 MG IV (11:11)
[2025-03-15] MEDS: tranexamic acid 1,000 mg/10mL SDV 1000 MG XX (11:50)
[2025-03-15] MEDS: ROPivacaine 0.2% Premix 100 mL 200 MG INTRA-ARTI (11:50)
--- NOTE | 2025-03-15 13:07 | P.OP_ITS ---
Operative Report Date of procedure: March 15, 2025 Surgeon: Baljinder Partida DO Procedure: Preoperative diagnosis: Left knee degenerative joint disease Post-op diagnosis: Same Procedure done: Left total knee arthroplasty, cemented?robotic assisted Jak Implants: Albers triathlon size 2 femur CR cemented?left Albers triathlon size? 1 tibia universal baseplate cemented Albers triathlon symmetric patella size 29 mm Susie triathlon polyethylene 9mm Surgeon: Baljinder Partida DO Estimated blood?loss: 100 mL Tourniquet 19minutes IV fluids: 1100 mL Urine output: 300 mL Complications: None Condition: stable Disposition: floor Brief History: Patient is a 75-year-old female with with chronic?left knee degenerative joint disease.? Patient has been worked up in the outpatient setting in the orthopedic office at this point time through shared decision making given? [id number] arthritis as well as failed conservative treatment, and pt would?like to proceed with a?left total knee arthroplasty.? Through shared decision making elected to proceed with surgical intervention for?left total knee arthroplasty.? We talked about continued conservative treatment and surgical intervention as far as the risk benefits complications alternatives surgical and nonsurgical treatment options.? At this point time understanding patient risks with surgery patient agrees to proceed with surgical intervention.? Once again? risk with surgery include but are not?limited to make it better make it worse blood clot, heart attack, stroke, on the table, infection, injury to nerves or vessels, persistent pain, arthrofibrosis, implant failure.? Understanding these risks patient agrees to proceed with surgical intervention consent was obtained in the preoperative holding area for left total knee arthroplasty?Jak robotic vinita hodges.? All questions answered. Procedure: Patient was seen and evaluated in the preoperative holding area.? Consent was reviewed and signed with patient with plan for?left total knee arthroplasty.? All questions answered.? Correct extremity marked.? Patient seen and evaluated by the anesthesia department and once cleared for surgery was taken back to the operative suite.? Patient was placed into a supine position on the OR table.? All bony prominences were well-padded.? Patient was appropriately secured to the bed.? Patient underwent anesthesia per the anesthesia department.? Patient received anesthesia and? To catheter was placed.? A nonsterile tourniquet was applied to the?left thigh.? At this point in time a final timeout performed.? Patient received appropriate preoperative antibiotics and TXA. Next the?left?lower extremity was then prepped and draped in standard orthopedic fashion. Esmarch tourniquet was used exsanguinate the?left?lower extremity.? Tourniquet was insufflated to 250 mmHg. A standard anterior incision was made over midline of the knee.? Sharp scalpel excision through skin and subcutaneous tissue full-thickness skin flaps were made.? Fascia was elevated off of the extensor retinaculum was stable with medial parapatellar arthrotomy was then made.? The performed standard sequential releases..? Immediately on entry into the joint patient was found to have severe eburnated bone and tricompartmental arthritic changes noted.? With significant osteophyte formation.? Next the the patella was then stuffed and the knee was then flexed.?? Muna was placed superiorly around the anterior aspect of the femur this was freed of synovium and I subsequently then placed by 2 femur pins to establish my femur arrays for the Jak robot.? These were then placed bicortically and? femur array was then appropriately secured with appropriate visualization.? Next attention was turned towards the tibial rays.? These were then drilled sequentially bicortically in parallel fashion and intraincisional.? I then placed my guide as well as my tibial array on in place.? This was appropriately secured and had excellent visualization with the Jak robot.? Next the tibial checkpoint as well as femur checkpoint were then placed.? Prior to cutting it was noted patient had a venous tourniquet as a result the tourniquet was deflated at 19 minutes and left down for the rest of the case as patient had a venous tourniquet. At this point time I then subsequently established my head center as well as my medial?lateral malleoli as well as my checkpoints.? Next utilizing standard Jak technology I then mapped out the appropriate points and confirmation points around the femur as well as the tibia in standard fashion.? Once this was then done I then removed all osteophytes in preparation for dynamic testing.? All osteophytes were removed as well as I removed the ACL and the PCL was excised due to its significant tearing and degeneration noted.? At this point time the knee was brought into full extension and we performed our standard evaluation of our gap balancing stressing his?ligaments and extension as well as flexion appropriate adjustments were made to have appropriate gap balancing in both flexion and extension.? This plan for final cuts were planned to correct patient's deformity to patient's ligamentous tolerances. We get a preoperative plan evaluating our implants which was a size 2 femur and a size 1 tibia.? Next we brought in the Jak robot and sequentially made our femur cuts.? All excess bony cuts were then removed.? Finally we made our tibial cut.? Once this was done a standard PCL retractor was then placed into this position I excised the medial and?lateral meniscus.? The tibial cut was then subsequently removed all excess bony debris was removed.? I then utilized a?lamina loss prevention consultant and remove the posterior osteophytes.? At this point time sized the tibia and confirmed this was a size 1.? I utilized our blunt probe to establish rotation of tibial implant.? Once this was done I then placed my tibia size 1 trial in appropriate position and then subsequently placed tibial pins to hold this into place and trialed up to a size 9 mm poly as well as a size 2 femur which was appropriately impacted in place knee was then subsequently brought into extension. Trials were then assessed,? this was stable with varus valgus stress in extension as well as had symmetrical translation when brought into flexion demonstrating symmetrical gaps. I had excellent balance gaps in flexion and extension with varus and valgus stresses.? At this point I was satisfied with these implants these were then verified and opened on the back table size 1 tibia, size 2 femur,? size 9 mm polythickness.? We did confirm appropriate gap balancing and stresses as well as alignment utilizing? Jak and were satisfied with this plan.? ?At this point time with my trials in place I then towel clip the patella everted this made appropriate measurements subsequently utilizing freehand technique performed by patellar resurfacing this was confirmed to be appropriate resection and subsequently sized to be a 29 mm symmetric.? My drill peg guides were then clamped and appropriate position and appropriate position in the patella for appropriate tracking and parallel with the joint.? Pegs were drilled trial implant was placed and the knee was then subsequently ranged and found to have excellent patellar tracking.? Femur pegs were then drilled.? At this point time all of our trial implants were removed.? All checkpoints as well as guidepins and arrays were removed and appropriate counts made. Satisfied with our tibial placement rotation I then utilized the keel punch and prepped the tibia.?? The wound bed? was thoroughly irrigated and dried and prepped for cementation.? Cement was mixed on the back table.? Once cement was ready this was then covered onto the tibia and the tibial baseplate was then impacted and all excess cement was removed.? Next the polyethylene was then impacted into place on the tibial baseplate.? Next cement was placed onto the femur as well as under the femur implants and impacted in to place and all excess cement was extruded and removed.? Knee was taken into full extension? to clear all excess cement was removed.? Warm saline was placed over the joint.? I then towel clip patella and dried for cementation. cemented the patella into place.? This was all clamped and the cement was allowed to cure.? Thorough irrigation performed with pulse?lavage.? I then placed my periarticular injection while the cement was curing.? Once cured the knee was taken through range of motion and had excellent stability and gaps were balanced in flexion and extension.? Tourniquet was then deflated. hemostasis satisfactory with electrocautery.? Vancomycin powder placed in wound bed for antibiotic infection prophylaxis. Next I then subsequently closed the capsule with Ethibond suture as well as a running strata fix suture.? Knee was then taken through range of motion 30 times.? Next the skin was then closed in?layered fashion of running stratifix sutures of deep and subcutenous tissue and skin.? ?closed in flexion with carlyle for skin,? Incision was covered with delilah incisional VAC dressing, with ABDs soft roll and Triston wrap.? Patient was then awakened from anesthesia and taken to PACU in stable condition. Disposition: Patient taken to PACU in stable condition will be admitted to the floor for pain control PT/OT weight-bear as tolerated?left?lower extremity dressing changes as needed, DVT prophylaxis. Pain control. Patient will receive appropriate postoperative antibiotics. patient will be seen today by the internal medicine team for medical management.? Patient will follow up with the office in 2 weeks.? Patient understands agrees with current plan.? All questions answered.
--- NOTE | 2025-03-15 13:26 | PM.CONSULT ---
Providers/Reason For Consult Consulting Physician/Specialty*: Internal medicine/hospitalist Reason for Consult*: Medical comorbidities Requesting Physician: Attending physician Attending Physician: Baljinder Partida DO Primary Care Provider: Michele Milner DO History of Present Illness History of Present Illness Michelle Power is a 75 year old female with past medical history of hypertension, type 2 diabetes mellitus who underwent robotic left total knee arthroplasty with orthopedic team today. Medicine consulted for medical comorbidities. Patient when seen in PACU is waking up, drowsy, saturating 94% on room air, heart rate of 80 bpm with blood pressure of 128 /68 systolic. Review of Systems General: Reports: ROS unobtainable due to mental status Medications/Allergies Home Medications ?Medication ?Instructions ?Recorded ?Confirmed ?Last Taken ?Type albuterol sulfate 90 mcg inhalation DIRECTED PRN 01/07/23 03/11/25 03/11/25 History shortness of breath meloxicam 15 mg tablet 15 mg PO DAILY 01/07/23 03/11/25 03/13/25 History metformin 500 mg tablet 500 mg PO DAILY 01/07/23 03/11/25 03/13/25 History metoprolol succinate 100 mg 100 mg PO DAILY 01/07/23 03/15/25 03/15/25 06:00 History tablet,extended release 24 hr mometasone 0.1 % topical cream 1 applic topical DAILY 01/07/23 03/11/25 03/13/25 History nitroglycerin 6.5 mg 6.5 mg PO BID 01/07/23 03/11/25 03/11/25 History capsule,extended release rosuvastatin 40 mg tablet (Crestor) 40 mg PO DAILY 01/07/23 03/11/25 03/13/25 History tramadol 50 mg tablet 50 mg PO BID PRN pain' 01/07/23 03/11/25 03/13/25 History diabetic shoes with 3 inserts #1 ea 08/03/24 03/09/25 Unknown Rx isosorbide mononitrate 30 mg 30 mg PO DAILY 03/15/25 03/15/25 03/13/25 History tablet,extended release 24 hr Allergies Allergy/AdvReac Type Severity Reaction Status Date / Time latex Allergy Severe ADR-Itching Verified 03/15/25 07:22 Penicillins Allergy Severe ALGY-Rash Verified 03/15/25 07:22 gabapentin (From Neurontin) Allergy Intermediate ADR-Itching Verified 03/15/25 07:22 levofloxacin (From Levaquin) Allergy Intermediate ADR-Itching Verified 03/15/25 07:22 Sulfa (Sulfonamide Allergy Intermediate Unknown Verified 03/15/25 07:22 Antibiotics) tuna Allergy Severe ADR-Vomitin Uncoded 03/15/25 07:22 g horse serum TD Allergy Intermediate ALGY-Redness Uncoded 03/15/25 07:22 of Skin inderal Allergy Intermediate ADR-Nausea Uncoded 03/15/25 07:22 Current Medications Generic Name Dose Route Start Last Admin Trade Name Freq PRN Reason Stop Dose Admin Sodium Chloride 1,000 mls @ 30 mls/hr 03/15/25 07:00 03/15/25 07:36 Sodium Chloride 0.9% IV 03/16/25 06:59 30 mls/hr .Q24H KUNAL Administration PFSH Acute PFSH: Medical History (Updated 03/15/25 @ 13:53 by Eriberto Ballard MD) Type 2 diabetes mellitus Hypertension S/P angiogram of extremity Cataract Degenerative tear of glenoid labrum of right shoulder Lateral meniscus tear Surgical History (Updated 03/15/25 @ 13:53 by Eriberto Ballard MD) S/P lens implant Knee joint replacement status Social History Smoking and tobacco/nicotine status: never used tobacco/nicotine Vitals/I&O/Wt Last Vital Signs BP 199/104 03/15/25 07:43 O2 Del Method Room Air 03/15/25 07:13 03/14/25 03/15/25 03/15/25 22:59 06:59 14:59 Intake Total 450 / 450 Balance 450 / 450 Weight last 48 hrs Weight 86.183 kg Physical Exam Narrative: General: No acute distress, drowsy, postanesthetic HEENT: PERRLA, pupils bilaterally equal and reactive Chest: Normal vesicular breath sounds, no added sounds, equal good air entry bilaterally CVS: S1-S2 regular, no murmurs, no tachycardia, no gallops, no rubs Abdomen: Soft, nontender, no organomegaly, bowel sounds present Neuro: No focal deficits, no facial deformity, Urinary Catheter Management: To: Cath Placed During This Visit: yes Urinary Catheter Date of Insertion: 03/15/25 Urinary Catheter Time of Insertion: 11:15 Data 03/15/25 07:47 03/15/25 07:47 A&P Assessment and plan 1. Encounter for postoperative care: Underwent left total knee robotic arthroplasty. Anticoagulation, perioperative antibiotics, PT, To catheterization as per orthopedic team. Monitor hemoglobin. 2. Hypertension: Goal blood pressure less than 140/90 mmHg. Patient takes metoprolol 100 mg succinate daily at home along with Imdur 30 mg daily. Restart home dose of metoprolol. Hold off on Imdur for now. Uptitrate as for goal blood pressure. 3. Type 2 diabetes mellitus: Recent A1c of more than 7. Takes only metformin at home. Insulin sliding scale low-dose protocol. Plan: Full code Diet advance as per surgical/anesthetic team Anticoagulation as per primary team Cardiac carb consistent diet once patient ready Thank you for involving us in care [facility]. Please call with any questions PDMP PDMP Reviewed: Not Reviewed Consult Attestations Medical Necessity Statement: As per primary team Diagnoses Encounter for postoperative care Z48.89 Hypertension I10 Type 2 diabetes mellitus E11.9
--- NOTE | 2025-03-15 13:27 | P.BOP_ITS ---
Date of Procedure: [March 15, 2025] Surgeon: [ Dr. Partida DO] Community Development Director(s): [Casper Partida PA-C] Procedure(s) performed: [Left total knee arthroplasty with Jak robotic assist] Findings of the procedure(s): [Left knee degenerative joint disease. Procedure went well and as planned] Estimated blood loss: [100 mL] Specimen(s) removed: [Femoral and tibial shavings] Post-operative diagnosis: [Left knee degenerative joint disease]
--- NOTE | 2025-03-15 13:30 | PM.PACU ---
PACU note Narrative: Patient is a 75-year-old female who just underwent a left total knee. Pt transferred to PACU in stable condition. Dressing is dry. pt is awake and alert. pt can wiggle toes and plantarflex and dorsiflex foot. pt able to perform straight leg raise, Femoral nerve intact. Distal pulses are palpable toes are warm and well-perfused. Cap refill is normal and under 2 seconds. Sensation to foot is intact. Pain is controlled. Exam: awake Disposition: discharged
--- NOTE | 2025-03-15 13:34 | XR_ITS ---
WS: [id number] Left knee, AP and lateral views, 03/15/2025 Clinical Data: post L TKA Comparison: Left knee, 12/08/2024 Findings: The knee arthroplasty is in good position. There is postoperative air in the joint space. There are anterior surgical carlyle. XR/XR knee LT 1-2V [id number] Impression: Left knee arthroplasty.
--- NOTE | 2025-03-15 14:34 | PC.NURSE ---
1427 - accepted into OB 11 with Kathia Boyd at side - no distress upon this nurse exiting care - BP 147/75 - 94% 98 pulse 98.3
--- NOTE | 2025-03-15 14:46 | ANE.PACU2 ---
Inpatient post-anesthesia follow up: Airway intact: Yes Vital signs: Temperature 97.4 F Pulse Rate 96 Respiratory Rate 13 Blood Pressure 143/65 Pulse Oximetry 96 Oxygen Delivery Me thod Nasal Cannula Oxygen Flow Rate 3 Fraction of Inspir ed Oxygen Hydration adequate: Yes Nausea and vomiting: No Pain level: 2 Mental status: Baseline
[2025-03-15 14:57] LABS: Thyroid Stimulating Hormone 4.26 uIU/mL (0.27-4.20)
[2025-03-15] MEDS: tranexamic acid 1,000 MG/100 ML PREMIX 600 MG IV (16:17)
[2025-03-15] MEDS: ondansetron 2 mg/ML SDV 2 mL 4 MG IVP (16:34)
[2025-03-15 16:36] LABS: Free T4 Free Thyroxine 0.96 ng/dL (0.82-1.77)
[2025-03-15 17:03] LABS: Iron 45 ug/dL (37-145); Total Iron Binding Capacity 324 mcg/dl; Unsaturated Iron Binding 279 ug/dL (112-347)
[2025-03-15 17:19] LABS: Vitamin B12 275 pg/mL (232-1245)
[2025-03-15] MEDS: sennosides-docusate Tablet 2 TAB PO (17:21)
[2025-03-15] MEDS: calcium carb-vit d 600mg/400unit 1 Tablet 1 EACH PO (17:22)
[2025-03-15] MEDS: chlorhexidine gluconate 0.12% Btl 473 mL 30 ML MUCOUS MEM ×2 (17:22→23:11)
[2025-03-15] MEDS: mupirocin oint 22 gm 1 APPLIC NASAL (17:22)
[2025-03-16 01:30] VITALS: BP 132/54; PULSE 66; RESP 16; TEMP 36.6; O2SAT 96
[2025-03-16 05:00] VITALS: BP 175/69; PULSE 76; RESP 18; TEMP 36.4; O2SAT 97
[2025-03-16] MEDS: chlorhexidine gluconate 0.12% Btl 473 mL 30 ML MUCOUS MEM ×2 (05:02→11:47)
[2025-03-16] MEDS: mupirocin oint 22 gm 1 APPLIC NASAL (05:03)
[2025-03-16] MEDS: sennosides-docusate Tablet 2 TAB PO (05:04)
[2025-03-16] MEDS: metoprolol succinate ER (24 HR) 100 mg Tablet PO (05:04)
[2025-03-16] MEDS: calcium carb-vit d 600mg/400unit 1 Tablet 1 EACH PO (05:04)
[2025-03-16] MEDS: multivitamin therapeutic Tablet 1 TAB PO (05:04)
[2025-03-16 05:49] LABS: Hematocrit 34.4 % (36-47); Hemoglobin 11.20 g/dL (11.27-16.99); Mean Corpuscular HGB Conc 32.6 g/dL (30-55); Mean Corpuscular Hemoglobin 28.4 pg (27-33); Mean Corpuscular Volume 87.1 fl (85-98); Nucleated Red Blood Cells % 0 %; Platelet Count 257 10^3/cmm (157-399); Red Blood Count 3.95 10^6/uL (3.85-5.65); White Blood Count 12.83 10^3/uL (3.29-11.43)
[2025-03-16 06:13] LABS: Cholesterol 207 mg/dL (0-200); HDL Cholesterol 37 mg/dL (60-100); Magnesium 1.5 mg/dL (1.7-2.3); Triglycerides 156 mg/dL (0-150); VLDL Cholestrol Calculation 31 mg/dL (0-30)
[2025-03-16 06:37] LABS: Alanine Aminotransferase 10 U/L (0-33); Albumin Level 3.7 g/dL (3.5-5.2); Alkaline Phosphatase 109 U/L (35-105); Anion Gap 17.5 (5-19); Aspartate Amino Transferase 14 U/L (0-32); Blood Urea Nitrogen 14 mg/dL (8-23); Calcium 9.3 mg/dL (8.5-10.5); Carbon Dioxide 21 mmol/L (22-29); Chloride 102 mmol/L (98-107); Creatinine Clr Calc Pharmacy 81.3951; Globulin 2.7 g/dL (1.3-4.6); Glucose 159 mg/dL (65-115); Osmolality Calculated 286 mOsm/kg (285-295); Potassium 4.5 mmol/L (3.5-5.1); Sodium 136 mmol/L (136-145); Total Protein 6.4 g/dL (6.6-8.7)
[2025-03-16] MEDS: acetaminophen 1,000 MG/100 ML PIGGYBACK 400 MG IV ×2 (07:43)
[2025-03-16 07:44] VITALS: RESP 16
[2025-03-16] MEDS: oxyCODONE 5 mg IR Tab/Cap PO ×2 (07:44→13:23)
[2025-03-16] MEDS: APIXABAN 2.5 MG TABLET PO (09:22)
[2025-03-16 09:45] VITALS: BP 166/63; PULSE 65; RESP 16; TEMP 36.4; O2SAT 94
--- NOTE | 2025-03-16 10:35 | USCV_ITS ---
[place], [place] Age: 75 Gender: F : 1950 Exam Date: 03/16/2025 11:25 Ordering Phys: Eriberto Ballard MD Technologist: Exam Location: [facility] [place] Indication: cp murmur BP: 134 / 74 HR: 59 Rhythm: Sinus Technical Quality: Adequate MEASUREMENTS (Male / Female) Normal Values 2D ECHO LV Diastolic Diameter PLAX 4.2 cm 4.2 - 5.9 / 3.9 - 5.3 cm IVS Diastolic Thickness 1.1 cm 0.6 - 1.0 / 0.6 - 0.9 cm IVS Systolic Thickness 1.6 cm LVPW Diastolic Thickness 1.1 cm 0.6 - 1.0 / 0.6 - 0.9 cm LVPW Systolic Thickness 1.6 cm LVOT Diameter 2.1 cm LV Ejection Fraction 2D Teich 69.2 % LV Ejection Fraction MOD 4C 64.3 % LV Ejection Fraction MOD 2C 52.3 % LV Ejection Fraction 2C AL 51.2 % LA Diameter 3.7 cm RA Systolic Volume 4C AL 54.9 ml RA Systolic Volume 4C MOD 52.5 ml Aorta at Sinotubular Diameter 2.8 cm IVC Diameter 2.1 cm M-MODE LA Ao Ratio MM 1.4 AV Cusp Separation MM 1.3 cm DOPPLER AV Peak Velocity 219.0 cm/s LVOT Peak Velocity 80.0 cm/s AV Area Cont Eq vti 1.6 cm squared AV Area Cont Eq pk 1.3 cm squared MV Peak Velocity 118.0 cm/s MV Area PHT 2.8 cm squared Mitral E to A Ratio 1.0 TR Peak Velocity 265.0 cm/s TR Peak Gradient 28.1 mmHg TV Peak E Velocity 113.0 cm/s PV Peak Velocity 104.0 cm/s FINDINGS Left Ventricle Normal left ventricular size, systolic function and wall thickness, with no regional wall motion abnormalities. Left ventricular ejection fraction is estimated at 60 %. Grade II/IV diastolic dysfunction, moderately elevated filling pressures. Right Ventricle Normal right ventricular size and systolic function. Right Atrium Normal right atrial size. Left Atrium Moderately increased left atrial size. IA Septum Normal appearance of the interatrial septum. Mitral Valve Mildly thickened mitral valve. No mitral valve stenosis. Mid mitral valve regurgitation. Aortic Valve Severe aortic valve calcification. Mild aortic valve stenosis, mean gradient 8.8 mmHg, JOLIE 1.6 cm squared. No aortic valve regurgitation. Tricuspid Valve Mild tricuspid valve regurgitation. Pulmonic Valve Trace pulmonary valve regurgitation. Pericardium No pericardial effusion. Aorta Normal diameter of the aortic root and ascending thoracic aorta. IVC Normal IVC diameter. CONCLUSIONS Normal left ventricular size, systolic function and wall thickness, with no regional wall motion abnormalities. Left ventricular ejection fraction is estimated at 60 %. Grade II/IV diastolic dysfunction, moderately elevated filling pressures. Severe aortic valve calcification. Mild aortic valve stenosis, mean gradient 8.8 mmHg, JOLIE 1.6 cm squared. No aortic valve regurgitation. Mildly thickened mitral valve. No mitral valve stenosis. Mid mitral valve regurgitation. Mild tricuspid valve regurgitation. There is no pericardial effusion. Right atrial pressure is around 5 mm of mercury. Manolo Dasilva MD (Electronically Signed) Final Date: 16 March 2025 12:21 S
--- NOTE | 2025-03-16 11:31 | P.PN_ITS ---
Subjective 2 Subjective: No acute events overnight. Blood pressure slightly elevated today morning. Patient states she is feeling back to her baseline. Denies any nausea, vomiting, headache or chest pain. More awake and alert today. Dates Imdur was added to her medication list within last 1 week. Her blood pressures occasionally have been extremely elevated. Complains of occasional chest pain on exertion for many many years for which she takes her extended release nitrate. Vitals/I&O/Wt Last Vital Signs Temp 97.6 F 03/16/25 09:45 Pulse 65 03/16/25 09:45 Resp 16 03/16/25 09:45 BP 166/63 03/16/25 09:45 Pulse Ox 94 03/16/25 09:45 O2 Del Method Room Air 03/16/25 09:45 O2 Flow Rate 2 03/15/25 20:00 03/15/25 03/16/25 03/16/25 22:59 06:59 14:59 Intake Total 150 / 750 100 / 850 Output Total 200 / 600 1000 / 1600 Balance -50 / 150 -900 / -750 Weight last 48 hrs Weight 86.183 kg Weight 86.183 kg Physical Exam 2 Narrative: General: No acute distress, AO x 3 HEENT: PERRLA, pupils bilaterally equal and reactive Chest: Normal vesicular breath sounds, no added sounds, equal good air entry bilaterally CVS: S1-S2 regular, no murmurs, no tachycardia, no gallops, no rubs Abdomen: Soft, nontender, no organomegaly, bowel sounds present Neuro: No focal deficits, no facial deformity, AO x 3, moving all limbs Urinary Catheter Management: To: Cath Placed During This Visit: yes, but has since been removed by the nurse Reason for Continuing Indwelling Catheter: Required Immobilization for Trauma or Surgery or Anesthesia Urinary Catheter Date of Insertion: 03/15/25 Urinary Catheter Time of Insertion: 11:15 Date Urinary Catheter Removed: 03/15/25 Time Urinary Catheter Discontinued: 23:00 Data 03/16/25 05:36 03/16/25 05:36 A&P Assessment and plan 1. Encounter for postoperative care: Underwent left total knee robotic arthroplasty. Anticoagulation, perioperative antibiotics, PT, To catheterization as per orthopedic team. Monitor hemoglobin. 2. Hypertension: Goal blood pressure less than 140/90 mmHg. Patient takes metoprolol 100 mg succinate daily at home along with Imdur 30 mg daily. Restart home dose of metoprolol. Hold off on Imdur for now. Uptitrate as for goal blood pressure. 3. Type 2 diabetes mellitus: Recent A1c of more than 7. Takes only metformin at home. Insulin sliding scale low-dose protocol. Plan: Full code Diet advance as per surgical/anesthetic team Anticoagulation as per primary team Cardiac carb consistent diet once patient ready Plan for the day: Blood pressure slightly elevated. For now we will continue with home dose of metoprolol and Imdur. Have advised patient to check her blood pressure daily at home with goal blood pressure of less than 140/90 mmHg. Will check echocardiogram. Patient symptomatically gets history of possible unstable angina. No active chest pain for now. Can have a Lexiscan stress test as an outpatient. Patient is agreeable. Appreciate lipid panel. As per her they have tried multiple medications in the past including a soft carbidopa-levodopa without any side effects. For now we will continue with rosuvastatin. Will advise 81 mg of aspirin daily. Patient is stable to be discharged from medical standpoint. Thank you for involving us in care [facility]. Please call with any questions PDMP PDMP Reviewed: Not Reviewed Attestations 2 Medical Necessity Statement*: As per primary team. Diagnoses Encounter for postoperative care Z48.89 Hypertension I10 Type 2 diabetes mellitus E11.9
--- NOTE | 2025-03-16 12:30 | PM.DCS ---
Discharge Providers Date of Admission: 03/15/25 14:55 Date of Discharge: March 16, 2025 Attending Provider at Admission: Baljinder Partida DO Attending Provider at Discharge: Baljinder Partida DO Consults: Hospitalist?Dr. Ballard Primary Care Provider: Michele Milner DO Diagnoses at Discharge Discharge Diagnosis 1. S/P total knee replacement using cement: 2. Encounter for postoperative care: 3. Hypertension: 4. Type 2 diabetes mellitus: Reason for Visit Reason for Visit: M17.12 Brief History: Status post left total knee arthroplasty?Jak robotic assisted Hospital Course Hospital Course Patient presented to the preoperative holding area with plan for left total knee arthroplasty after patient has been worked up in the outpatient setting for failed conservative treatment of [left] knee degenerative joint disease. Once cleared by anesthesia for surgery patient subsequently was taken back to the operative suite underwent anesthesia per anesthesia department and then subsequently underwent a [left] total knee arthroplasty. Procedure was performed without any complications patient was taken to PACU in stable condition patient recovered well in PACU and then was admitted to the floor postoperatively internal medicine was consulted and on board for medical management and assistance with care. Patient received appropriate PT/OT, postoperative antibiotics, postoperative TXA, pain control, postoperative DVT prophylaxis. Elevation and ice. Patient encouraged for knee range of motion allowed weightbearing as tolerated to the operative lower extremity. Dressing was changed as needed, labs were monitored daily. Patient recovered well postoperatively and worked well and progressed well with therapy. It was determined on postoperative day [1 ] the patient was stable for discharge from an orthopedic standpoint and medicine. Patient was comfortable with discharge and plan was discharged home. Patient received appropriate discharge instructions as well as pain medication and DVT prophylaxis postoperatively. Given appropriate instructions for dressing management. Patient will follow-up with Dr. Partida/orthopedics in the office in 2 weeks. All questions answered. Understand if there is any issues questions or concerns and contact the office. Physical Exam Narrative: Left knee examination: Dressing on in place, clean dry and intact. No evidence of saturation. Patient has normal postoperative swelling and tenderness to palpation to the knee. Compartments are soft compressible,'s calf soft and nontender. Sensations intact to light touch distally. Distal pulses are palpable. Patient is able to wiggle toes as well as plantarflex and dorsiflex ankle. Urinary Catheter Management: To: Cath Placed During This Visit: yes, but has since been removed by the nurse Reason for Continuing Indwelling Catheter: Required Immobilization for Trauma or Surgery or Anesthesia Urinary Catheter Date of Insertion: 03/15/25 Urinary Catheter Time of Insertion: 11:15 Date Urinary Catheter Removed: 03/15/25 Time Urinary Catheter Discontinued: 23:00 Discharge Data Studies Completed and Pending Completed Studies During Hospitalization Category Date Time Status XR knee LT 1-2V 85203 Routine Exams 03/15/25 13:34 Completed CV. echo complete* [id number] Routine Ultrasound 03/16/25 10:35 Completed Radiology Impressions Knee X-Ray 03/15/25 13:34 Impression: Left knee arthroplasty. Laboratory Results WBC 12.83 10^3/uL (3.29-11.43) H 03/16/25 05:36 RBC 3.95 10^6/uL (3.85-5.65) 03/16/25 05:36 Hgb 11.20 g/dL (11.27-16.99) L 03/16/25 05:36 Hct 34.4 % (36-47) L 03/16/25 05:36 MCV 87.1 fl (85-98) D 03/16/25 05:36 MCH 28.4 pg (27-33) 03/16/25 05:36 MCHC 32.6 g/dL (30-55) 03/16/25 05:36 RDW 13.8 % (12.1-15.1) 03/16/25 05:36 Plt Count 257 10^3/cmm (157-399) 03/16/25 05:36 MPV 10.5 fL (7.4-10.4) H 03/16/25 05:36 Neut % (Auto) 85.5 % 03/16/25 05:36 Lymph % (Auto) 9.0 % 03/16/25 05:36 [place] % (Auto) 4.7 % 03/16/25 05:36 Eos % (Auto) 0.1 % 03/16/25 05:36 Baso % (Auto) 0.2 % 03/16/25 05:36 Neut # (Auto) 10.96 10^3/uL (1.8-7.7) H 03/16/25 05:36 Lymph # (Auto) 1.2 10^3/uL (0.8-4.8) 03/16/25 05:36 [place] # (Auto) 0.6 10^3/uL (0.2-0.9) 03/16/25 05:36 Eos # (Auto) 0.0 10^3/uL (0.0-0.8) 03/16/25 05:36 Baso # (Auto) 0.0 10^3/uL (0.0-0.1) 03/16/25 05:36 Nucleated RBC % (auto) 0 % 03/16/25 05:36 Nucleated RBCs # 0.0 /100WBC 03/16/25 05:36 Sodium 136 mmol/L (136-145) 03/16/25 05:36 Potassium 4.5 mmol/L (3.5-5.1) 03/16/25 05:36 Chloride 102 mmol/L (98-107) 03/16/25 05:36 Carbon Dioxide 21 mmol/L (22-29) L 03/16/25 05:36 Anion Gap 17.5 (5-19) 03/16/25 05:36 BUN 14 mg/dL (8-23) 03/16/25 05:36 Creatinine 0.6 mg/dL (0.5-0.9) 03/16/25 05:36 GFR Calculation Not Reportable 03/16/25 05:36 Glucose 159 mg/dL (65-115) H 03/16/25 05:36 POC Glucose 136 mg/dL (70-110) H 03/16/25 11:25 Calculated Osmolality 286 mOsm/kg (285-295) 03/16/25 05:36 Calcium 9.3 mg/dL (8.5-10.5) 03/16/25 05:36 Magnesium 1.5 mg/dL (1.7-2.3) L 03/16/25 05:36 Iron 45 ug/dL (37-145) 03/15/25 07:47 TIBC 324 mcg/dl 03/15/25 07:47 % Saturation 13.8 % (20-50) L 03/15/25 07:47 Unsat Iron Binding 279 ug/dL (112-347) 03/15/25 07:47 Total Bilirubin 0.2 mg/dL (0.15-1.2) 03/16/25 05:36 AST 14 U/L (0-32) 03/16/25 05:36 ALT 10 U/L (0-33) 03/16/25 05:36 Alkaline Phosphatase 109 U/L (35-105) H 03/16/25 05:36 Total Protein 6.4 g/dL (6.6-8.7) L 03/16/25 05:36 Albumin 3.7 g/dL (3.5-5.2) 03/16/25 05:36 Globulin 2.7 g/dL (1.3-4.6) 03/16/25 05:36 Triglycerides 156 mg/dL (0-150) H 03/16/25 05:36 Cholesterol 207 mg/dL (0-200) H 03/16/25 05:36 LDL Cholesterol, Calc 139 mg/dL (50-129) H 03/16/25 05:36 Total VLDL Cholesterol 31 mg/dL (0-30) H 03/16/25 05:36 HDL Cholesterol 37 mg/dL (60-100) L 03/16/25 05:36 Cholesterol/HDL Ratio 5.59 mg/dL (0.0-4.40) H 03/16/25 05:36 Vitamin B12 275 pg/mL (232-1245) 03/15/25 07:47 Folate 13.3 ng/mL (4.8-37.3) 03/16/25 05:36 TSH 4.26 uIU/mL (0.27-4.20) H 03/15/25 07:47 Free T4 0.96 ng/dL (0.82-1.77) 03/15/25 07:47 Free T3 2.9 PG/ML (2.0-4.4) 03/15/25 07:47 Blood Type A Positive 03/15/25 07:47 Rho(D) Type Rh positive 03/15/25 07:47 Antibody Screen Negative 03/15/25 07:47 Vitals Last Vital Signs Temp 98.1 F 03/16/25 17:00 Pulse 62 03/16/25 17:00 Resp 18 03/16/25 17:00 BP 173/88 03/16/25 17:00 Pulse Ox 97 03/16/25 17:00 O2 Del Method Room Air 03/16/25 09:45 O2 Flow Rate 2 03/15/25 20:00 Discharge Plan Discharge Patient Disposition: Home Condition: Stable Prescriptions: New Eliquis 2.5 mg tablet 2.5 mg PO BID 14 Days Qty: 28 0RF aspirin 81 mg capsule 81 mg PO DAILY Qty: 30 0RF Continued metoprolol succinate 100 mg tablet extended release 24 hr 100 mg PO DAILY nitroglycerin 6.5 mg capsule, extended release 6.5 mg PO BID Rx Instructions: allow nitrate-free interval of approx. 10-12 hrs per 24-hour period rosuvastatin [Crestor] 40 mg tablet 40 mg PO DAILY meloxicam 15 mg tablet 15 mg PO DAILY mometasone 0.1 % cream 1 applic topical DAILY tramadol 50 mg tablet 50 mg PO BID PRN (Reason: pain') metformin 500 mg tablet 500 mg PO DAILY albuterol sulfate 90 mcg inhalation DIRECTED PRN (Reason: shortness of breath) (DME) diabetic shoes with 3 inserts See Rx Instructions .Route .MEDSUPPLY Qty: 1 0RF Rx Instructions: As directed to the shoe garry isosorbide mononitrate 30 mg Tablet Extended Release 24 Hr 30 mg PO DAILY No Action hydrocodone-acetaminophen 10-325 mg tablet 1 tab PO Q6H PRN (Reason: pain) 7 Days Qty: 28 0RF [employer] Worker OK for DC: Hospitalist Discharge Order = DC NOW: Discharge Order (Routine); Ordered 03/16/25 Ordered By: Baljinder Partida Other Ambulatory Orders: Physical Therapy Eval and Treat Outpatient (Order) Timeframe: 2 Days Location: Determined by Patient Ordered By: Baljinder Partida Sestamibi Stress Test Request (Routine) Timeframe: 1 Week Facility: [facility] - Location: Cardiac Diagnostic Laboratory Ordered By: Eriberto Ballard Referrals: Michele Milner DO [Primary Care Provider, Family Practice] - 7-10 days Casper Partida PA [Physician Guest Service Host, Orthopedics] - 03/30/25 8:15 am Discharge Diet: Regular Discharge Activity: Limit activity as instructed Patient Instructions: Acute Wound Care (DC), Precautions after Total Joint Replacement Surgery (DC), Opioid Safety (DC), Total Knee Replacement (DC), OB Food/Drug Interaction Guide, Opioid Safety, Post Anesthesia Care, Patient Portal & Olga Instructions Activity Restrictions/Additional Instructions: Ortho DC instructions Delilah Dressing--Keep dressing on and dry. After 3 days you can remove some of the dressing and shower. disconnect battery pack when showering. Delilah dressing will stay on until follow up appt in 2 weeks. The battery pack for the dressing will at 5-7 days. Battery pack can be removed and discarded once batteries .Can redress with a new delilah incisional dressing if greater than 50% saturated before followup appt Patient may weight-bear as tolerate to the operative extremity Utilize walker as needed Encourage knee range of motion Ice and elevate as needed for pain and swelling Take pain medication as prescribed Take antinausea medication as needed Take Abx as prescribed Pain medication can cause constipation. take [id number] stool softeners and or MiraLAX. Take prescribed Eliquis twice daily for the next 14 days for blood clot prevention May supplement for pain with Tylenol [id number] as needed(1000 mg every 8 hours-do not exceed more than 3000mg in 24-hour period) No baths or soaks Follow-up in the orthopedic office in 2 weeks Contact the office for any questions or concerns Internal medicine discharge recommendations Please check your blood pressure daily at home and maintain a blood pressure diary. Goal blood pressure is less than 140/90 mmHg. Please follow-up for outpatient Lexiscan cardiac stress test. Follow-up with the primary care provider within the next 2 weeks. Discharge Attestations Time Spent in Discharge Care*: less than 30 min Quality Metrics Clinical Quality Measures [ No reported AMI, CVA or VTE this stay] Coding Level of Care Code Acute Code for Chg Fwd Diagnoses S/P total knee replacement using cement Z96.659 Encounter for postoperative care Z48.89 Hypertension I10 Type 2 diabetes mellitus E11.9 Time Spent (min) 25
[2025-03-16 13:23] VITALS: RESP 16
[2025-03-16 17:00] VITALS: BP 173/88; PULSE 62; RESP 18; TEMP 36.7; O2SAT 97
== END 2025-03-16 17:00 | disposition home or self-care (01) ==
LOC: OBGYN 14:56
PROVIDERS: Physician Assistant; Student in an Organized Health Care Education/Training Program; Admitting Provider Student in an Organized Health Care Education/Training Program; PCP Electrodiagnostic Medicine; Visit Provider Student in an Organized Health Care Education/Training Program
PROC: 8E0Y0CZ Robotic Assisted Procedure of Lower Extremity, Open Approach (ICD-10-PCS; CPT 27447; principal; 2025-03-15 10:40)
DX: M17.12 Unilateral primary osteoarthritis, left knee (principal); I10 Essential (primary) hypertension; E11.9 Type 2 diabetes mellitus without complications; Z79.84 Long term (current) use of oral hypoglycemic drugs; Z79.891 Long term (current) use of opiate analgesic; J45.909 Unspecified asthma, uncomplicated
CPT/HCPCS: 64447; 27447; 20985; 36415; 36416; 51702; 73560; 80048; 80053; 80061; 82607; 82746; 82962; 83540; 83550; 83735; 84439; 84443; 84481; 85025; 86850; 86900; 93306; 96372; 97116; 97161; 97165; 97530; A4216; C1713; C1776; G0378; J0131; J0169; J1171; J1815; J1885; J2405; J2704; J2795; J3010; J3373; J3490; J7030; J7120; J9999; L8699

== ENCOUNTER → 2025-03-24 12:41 | Outpatient (BNVA) | payer MEDICARE, OTHER, SELFPAY | PROVIDERS: PCP Electrodiagnostic Medicine; Visit Provider Surgery | DX: R03.0 Elevated blood-pressure reading, without diagnosis of hypertension (principal) | CPT/HCPCS: 99213 ==

== ENCOUNTER → 2025-03-30 08:16 | Outpatient (BNVA) | payer MEDICARE, OTHER, SELFPAY | PROVIDERS: PCP Electrodiagnostic Medicine; Visit Provider Physician Assistant | DX: Z98.890 Other specified postprocedural states (principal); Z96.659 Presence of unspecified artificial knee joint | CPT/HCPCS: 73560; 73565; 99024 ==

== ENCOUNTER → 2025-04-14 09:20 | Outpatient (BNVA) | payer MEDICARE, OTHER, SELFPAY | PROVIDERS: PCP Electrodiagnostic Medicine; Visit Provider Podiatrist Foot & Ankle Surgery | DX: S99.922A Unspecified injury of left foot, initial encounter (principal); S99.912A Unspecified injury of left ankle, initial encounter; S93.402A Sprain of unspecified ligament of left ankle, initial encounter; W19.XXXA Unspecified fall, initial encounter; L60.3 Nail dystrophy; M19.072 Primary osteoarthritis, left ankle and foot; G62.9 Polyneuropathy, unspecified; E11.9 Type 2 diabetes mellitus without complications | CPT/HCPCS: 73610; 73630 ==

== ENCOUNTER 2025-04-14 13:30 | Outpatient (CLI) | payer MEDICARE, OTHER, SELFPAY | END 2025-04-14 13:31 | disposition home or self-care (01) | LOC: SPT 13:31 | PROVIDERS: PCP Electrodiagnostic Medicine; Visit Provider Podiatrist Foot & Ankle Surgery | DX: Z46.89 Encounter for fitting and adjustment of other specified devices (principal); M25.372 Other instability, left ankle | CPT/HCPCS: L1902 ==

== ENCOUNTER → 2025-04-20 09:28 | Outpatient (BNVA) | payer MEDICARE, OTHER, SELFPAY | PROVIDERS: PCP Electrodiagnostic Medicine; Visit Provider Physician Assistant | DX: Z98.890 Other specified postprocedural states (principal); Z96.659 Presence of unspecified artificial knee joint | CPT/HCPCS: 73560; 73565; 99213 ==

== ENCOUNTER → 2025-05-11 08:04 | Outpatient (BNVA) | payer MEDICARE, OTHER, SELFPAY | PROVIDERS: PCP Electrodiagnostic Medicine; Visit Provider Physician Assistant | DX: Z98.890 Other specified postprocedural states (principal); Z96.659 Presence of unspecified artificial knee joint | CPT/HCPCS: 73560; 73565; 99024 ==

== ENCOUNTER → 2025-05-12 08:44 | Outpatient (BNVA) | payer MEDICARE, OTHER, SELFPAY | PROVIDERS: PCP Electrodiagnostic Medicine; Visit Provider Podiatrist Foot & Ankle Surgery | DX: L60.3 Nail dystrophy (principal); G62.9 Polyneuropathy, unspecified; S93.402A Sprain of unspecified ligament of left ankle, initial encounter; M19.072 Primary osteoarthritis, left ankle and foot; E11.42 Type 2 diabetes mellitus with diabetic polyneuropathy; X58.XXXA Exposure to other specified factors, initial encounter | CPT/HCPCS: 99213 ==

== ENCOUNTER → 2025-06-01 15:19 | Outpatient (BNVA) | payer MEDICARE, OTHER, SELFPAY | PROVIDERS: PCP Electrodiagnostic Medicine; Visit Provider Orthopaedic Surgery | DX: Z01.818 Encounter for other preprocedural examination (principal); M43.16 Spondylolisthesis, lumbar region | CPT/HCPCS: 72110; 80053; 81001; 85025; 99214 ==